=== PATIENT | male | born 1945 | race Caucasian/White ===

== ENCOUNTER 2017-03-02 19:24 | Inpatient (IN) ==
[2017-03-02] MEDS ORDERED: Sodium Chloride 0.9% 1,000 ML PRIMARY IV ONE ×2 (19:40→21:34)
[2017-03-02] MEDS ORDERED: ONDANSETRON 4 MG/2 ML VIAL ONE (19:50)
[2017-03-02] MEDS ORDERED: ONDANSETRON 4 MG/2 ML VIAL IVP ONE (20:38)
[2017-03-02] MEDS ORDERED: MORPHINE SULFATE 4 MG/1 ML IVP ONE (21:33)
[2017-03-02] MEDS ORDERED: NORMAL SALINE 10 ML SYRINGE FLUSH IVP PRN ×2 (21:34→23:23)
--- NOTE | 2017-03-02 21:37 | EKG ---
[address] [address] Measurements Intervals [place] Rate: 84 P: 18 LA: 181 QRS: -16 QRSD: 98 T: 58 QT: 402 QTc: 443 Interpretive Statements SINUS RHYTHM VOLTAGE CRITERIA FOR LVH [MEETS CRITERIA IN ONE OF: R(aVL), S(V1), R(V5), R(V5/V6)+S(V1)] NONSPECIFIC ST & T-WAVE ABNORMALITY (consider low K+ or Ca++) INTERPRETATION BASED ON A DEFAULT AGE OF 40 YEARS No previous ECG available for comparison Electronically Signed On 03-03-17 08:33:45 MDT by Prince Michaels MD [email or web address]
[2017-03-02 21:47] LABS: BLOOD UREA NITROGEN 20 mg/dL (7-22); BUN/CREATININE RATIO 28.57 (6-20)
[2017-03-02 21:48] LABS: LIPASE 58 IU/L (23-300); SERUM ALBUMIN 4.9 g/dL (3.5-4.8)
[2017-03-02 21:49] LABS: BASOPHILS # (AUTO) 0.06 10*3/UL; BASOPHILS % (AUTO) 0.14 % (0-1); EOSINOPHILS # (AUTO) 0.06 10*3/UL; EOSINOPHILS % (AUTO) 0.4 % (0-8); Hematocrit [HCT] 44.3 % (42.0-52.0); LYMPHOCYTES # (AUTO) 1.08 10*3/uL; MEAN CORPUSCULAR HEMOGLOBIN 33.7 PG (27-31); MEAN CORPUSCULAR HGB CONC 36.1 g/dL (33-37); MEAN CORPUSCULAR VOLUME 93.3 FL (80-90); MEAN PLATELET VOLUME 9.8 FL (7.4-12.2); MONOCYTES # (AUTO) 0.77 10*3/UL (0.3-0.8); MONOCYTES % (AUTO) 5.3 % (5-15); NEUTROPHILS # (AUTO) 12.55 10*3/UL; NEUTROPHILS % (AUTO) 86.3 % (50-80); PLATELET MORPHOLOGY COMMENT NORMAL MORPHOLOGY (NORM); RBC MORPHOLOGY COMMENT NORMAL MORPHOLOGY (NORM); RED BLOOD COUNT 4.75 10^6/uL (4.70-6.10); WBC MORPHOLOGY COMMENT NORMAL MORPHOLOGY (NORM)
[2017-03-02 21:50] LABS: COLOR,URINE YELLOW; URINE SAMPLE TYPE VOIDED SPECIMEN
[2017-03-02 21:51] LABS: BILIRUBIN,URINE NEGATIVE (NEG); CLARITY,URINE CLEAR (CLEAR); GLUCOSE, URINE (UA) NEGATIVE (NEG); NITRATE,URINE NEGATIVE (NEG); OCCULT BLOOD,URINE TRACE (NEG); PH,URINE 7.5 (5.0-8.5); PROTEIN,URINE 100 mg/dl (NEG); RBC,URINE 0-5 /hpf; UROBILINOGEN,URINE 0.2 EU/dL (0.2)
--- NOTE | 2017-03-02 22:21 | PDOC ---
Abdomen/Flank HPI - General Chief Complaint: Abdomen Pain Stated Complaint: abdominal pain Date Seen by Provider: 03/02/17 Time Seen by Provider: 19:30 Source: POSITIVE: Patient, Spouse Exam Limitations: POSITIVE: No limitations Nurse's Notes Reviewed & Considered: Yes - History of Present Illness Initial Comments: The patient is a 71-year-old male. He states that around noon today he developed poorly localized abdominal pain and nausea with vomiting. He states he's been belching a great deal. He states that he feels "like my stomach is an and not". No diarrhea, melena, hematochezia, hematemesis, dysuria or hematuria. He's had a cholecystectomy, laparoscopic. He's also had a coronary artery bypass graft 10 years ago and states he's had a "heart attack". He has a history of hypertension and benign prostatic hypertrophy. No known fevers. Body Location Affected: REPORTS: Abdomen Timing: REPORTS: Gradual, Getting Worse Duration: <24 hours (7-8 hours) Severity: Moderate Quality: REPORTS: "Pain" Abdominal Pain Onset Location: REPORTS: Generalized abdomen Abdominal Pain Radiation: REPORTS: No radiation Context: DENIES: None, Activity, Bending, Coughing, Fall, Lifting, Near Fall, Rest, Sitting, Sleep, Standing, Turning, Emotional stress, Camping, Bad Food, Out of Country Travel, Other, Recent Surgery, Recent Trauma Modifying Factors: improves with: Vomiting. worse with: Nothing, Analgesics, Antacids, Breathing, Coughing, Defecating, Eating, Exercise, Lying down, Urinating, Palpation, Movement, Rest, Upright Position, Walking, Remaining Still , Other Associated Symptoms: REPORTS: Nausea, Vomiting. DENIES: Denies symptoms, Back pain, Bloody Emesis, Chest pain, Coffee Grounds Emesis, Chills, Diaphoresis, Fever, Fatigue, Headache, Heartburn, Loss of Appetite, Rash, Shortness of breath , Swelling/mass in abdomen, Syncope, Testicular Pain, Weakness, Grossly Bloody Diarrhea, Constipation, Diarrhea, Dysuria, Incontinent Stool, Incontinent Urine , Mucous Diarrhea, Difficulty Walking, Dizziness, Light Headedness, Numbness, Other Similar Symptoms Previously: No Recent Care Received: REPORTS: Denies Any Prior Injuries Related to Current Complaint?: No - Patient Home Medications Home Medications: Home Medications Amlodipine Besylate [Norvasc] 1 tab PO DAILY 03/02/17 Atorvastatin Calcium 1 tab PO DAILY 03/02/17 Carvedilol 25 mg PO DAILY 03/02/17 Cyanocobalamin (Vitamin B-12) [B-12] 1 tab PO DAILY 03/02/17 Dutasteride [Avodart] 1 tab PO .QOD 03/02/17 [place]-3/Dha/Epa/Fish Oil [[place]-3 Fish Oil 1,200 mg Sfgl] 1 tab-cap PO ONCE Valsartan/Hydrochlorothiazide [Diovan Hct 320-25 mg Tablet] 1 tab PO EVERY AM - Patient Allergies Allergies/Adverse Reactions: Allergies Allergy/AdvReac Type Severity Reaction Status Date / Time No Known Allergies Allergy Unverified 03/02/17 20:13 Past Medical History - heen HEENT History: Denies History Cardiovascular History: Hypertension, Previous PA Respiratory History: Denies History Gastrointestinal History: Denies History Genitourinary History: Kidney Stones Endocrine History: Denies History Musculoskeletal History: Denies History Prosthesis or Implant: No Neurological History: CVA Blood Disorders: Denies History Psychiatric History: Denies History History of Sexually Transmitted Diseases: No Male Reproductive History: Denies History Cancer History: Denies History In Past Year Been Physically Harmed or Verbally Threatened: No History of MDRO: No History of Other Communicable Diseases: No Tobacco Use: Never Smoker Alcohol Use: Occasionally Type of alcohol normally used: Beer, Hard Liquor Substance Use Type: None Previous Surgical History: Yes Type / Date of Surgery: TRIPLE BYPASS, GALBLADDER REMOVAL, LEFT KNEE REPLACEMENT , RIGHT ROTATOR CUFF SURGERY Anesthesia Reactions: No Malignant Hyperthermia: No Family History of Malignant Hyperthermia: No Significant Family History: No pertinent family hx Past Medical History Reviewed: Reviewed - No Changes ROS - Limitations ROS Limitations: No Limitations Constitution: REPORTS: Denies Symptoms Cardiovascular: REPORTS: Denies Cardiac Symptoms Respiratory: REPORTS: Denies Resp Symptoms Neurological: REPORTS: Denies Neuro Symptoms Gastrointestinal: REPORTS: Abdominal Pain, Nausea, Vomitting Endocrine: REPORTS: Denies Symptoms Musculoskeletal: REPORTS: Denies MS Symptoms Genitourinary: REPORTS: Denies Symptoms Eyes: REPORTS: Denies Symptoms ENT: REPORTS: Denies Symptoms Skin: REPORTS: Denies Skin Symptoms Lympathic: REPORTS: Denies Lympathic Symptoms Immunologic: POSITIVE: Denies Symptoms Psychiatric: POSITIVE: Denies Psych Symptoms Abdominal/Flank Pain PE - General Appearance General Appearance: POSITIVE: Alert, Cooperative, No Evidence of Trauma, Mild Distress. NEGATIVE: No Acute Distress - HEENT HEENT: POSITIVE: Head Inspection Nml, Eyes Inspection Nml, Ears Inspection Nml, Nose Inspection Nml, Oral/Dental Inspect. Nml, Pharynx Inspect. Nml, PERRL, EOMI - Neck Neck: POSITIVE: Normal Inspection, No Apparent Injury - Respiratory Respiratory: POSITIVE: No Respiratory Distress, Breath Sounds Normal, Chest Non- Tender - Cardiovascular Cardiovascular: POSITIVE: Regular Rate and Rhythm, Heart Sounds Normal, Equal Pulses, Strong Pulses Peripheral Pulses: Radial (R): 2+, Radial (L): 2+ - Chest Chest: POSITIVE: Non Tender - Abdomen Abdomen: Soft: (All Quadrants), No Splenomegaly: (All Quadrants), No Hepatomegaly: (All Quadrants), No Guarding: (All Quadrants), No Rebound: (All Quadrants), No Palpable Pulse: (All Quadrants), No Palpabale Mass: (All Quadrants), No Distention: (All Quadrants), No Rigidity: (All Quadrants), Tenderness Noted: (RUQ), (LUQ), (RLQ), (LLQ), Hypoactive Bowel Sounds: (RUQ), ( LUQ), (RLQ), (LLQ) Additional Abdominal Details: Abdominal examination shows bowel sounds to be present, but probably depressed. Patient expresses discomfort/pain on direct palpation diffusely over the abdomen. No masses, organomegaly or rebound. - Genital / Rectal Male Genital: POSITIVE: Normal Inspection. 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 Lab Results Reviewed: Yes Lab Results:: Laboratory Results 03/02/17 Range/Units 19:30 WBC 14.55 H (4.8-10.8) 10^3/uL RBC 4.75 (4.70-6.10) 10^6/uL Hgb 16.0 (14.0-18.0) g/dL Hct 44.3 (42.0-52.0) % MCV 93.3 H (80-90) FL MCH 33.7 H (27-31) PG MCHC 36.1 (33-37) g/dL RDW Std Deviation 45.2 (39-50) fL RDW Coeff of Tony 13.6 (11.5-14.5) % Plt Count 279 (140-350) 10*3/uL MPV 9.8 (7.4-12.2) FL Immature Gran % (Auto) 0.2 (0-5) % Neut % (Auto) 86.3 H (50-80) % Lymph % (Auto) 7.4 L (10-50) % Pierce % (Auto) 5.3 (5-15) % Eos % (Auto) 0.4 (0-8) % Baso % (Auto) 0.14 (0-1) % Immature Gran # (Auto) 0.03 10*3/UL Neut # (Auto) 12.55 10*3/UL Lymph # (Auto) 1.08 10*3/uL Pierce # (Auto) 0.77 (0.3-0.8) 10*3/UL Eos # (Auto) 0.06 10*3/UL Baso # (Auto) 0.06 10*3/UL WBC Morphology Comment Normal morphology (NORM) Plt Morphology Comment Normal morphology (NORM) RBC Morph Comment Normal morphology (NORM) Sodium 143 (135-145) meq/L Potassium 3.9 (3.8-5.2) meq/L Chloride 103 (98-112) meq/L Carbon Dioxide 24 (23-33) meq/L Anion Gap 16 (5-20) BUN 20 (7-22) mg/dL Creatinine 0.7 (0.70-1.50) mg/dL Estimated GFR > 60 (>60 ml/min/1.73m(2)) BUN/Creatinine Ratio 28.57 H (6-20) Glucose 131 H (78-110) mg/dL Calculated Osmolality 300.0 H (267-292) mOsm/kg Calcium 10.5 (8.7-10.7) mg/dL Total Bilirubin 1.1 (0.3-1.2) mg/dL AST 41 (21-57) IU/L ALT 70 (21-72) IU/L Alkaline Phosphatase 73 (38-126) IU/L Total Protein 8.2 H (6.1-8.0) g/dL Albumin 4.9 H (3.5-4.8) g/dL Globulin 3.3 (2.50-4.10) g/dL Albumin/Globulin Ratio 1.40 (1.3-2.0) mg/g Amylase 74 (30-110) U/L Lipase 58 (23-300) IU/L Ur Collection Type Voided specimen Urine Color Yellow Urine Clarity Clear (CLEAR) Urine pH 7.5 (5.0-8.5) Ur Specific [place] 1.015 (1.005-1.030) Urine Protein 100 (NEG) mg/dl Urine Glucose (UA) Negative (NEG) mg/dL Urine Ketones 15 (NEG) Urine Occult Blood Trace H (NEG) Urine Nitrate Negative (NEG) Urine Bilirubin Negative (NEG) Urine Urobilinogen 0.2 (0.2) EU/dL Ur Leukocyte Esterase Negative (NEG) Urine RBC 0-5 (NONE) /hpf Urine WBC None (NONE) Ur Squamous Epith Cells None (NONE) Ur Renal Epithelial Cell None (NONE) Urine Crystals None Urine Bacteria None (NONE) Urine Casts None (NONE) Urine Mucus Moderate (NONE) Urine Trichomonas None (NONE) Urine Yeast None (NONE) Ur Culture Indicated? Culture not set EKG Interpreted/Reviewed By Me:: Yes (nonspecific ST-T changes) EKG Interpretation:: POSITIVE: Normal Sinus Rhythm, Normal Rate, Normal Intervals, Normal Robinson, Normal QRS, Abnormal EKG. NEGATIVE: Normal ST/T ( Nonspecific ST-T changes) - Patient's Progress Pain Medication Addressed: POSITIVE: Yes (Morphine sulfate, 4 mg IV given) School/Work Release Addressed: POSITIVE: Not Applicable Re-examine Time: 21:30 Re-Examine Comment: Radiologic and laboratory study results discussed with patient and his . Status: POSITIVE: Unchanged, Re-Examined - Consult Consult (If Yes, Name of Consulting MD & Time Called): Yes (Dr. Thomas, surgeon, [id number]) Consulting MD will see pt:: [facility]ITIVE: [facility] Admit Counseled: POSITIVE: Patient, Family, RE: Lab Results, RE: Radiology Results, RE : DX, RE: Need for F/U Patient Care Time - Estimated PCT Patient Care Time (In Minutes): 50 Vital Signs - Recent Vital Signs Vital Signs: Vital Signs (Last 8 hours) Temp Pulse Resp BP Pulse Ox 03/02/17 20:14 98.2 F 89 18 188/102 94 03/02/17 19:30 98.2 F 89 18 188/102 94 - VS Reviewed Vital Signs Reviewed: Yes Discharge Clinical Impression: Abdominal pain, Bowel obstruction Discharge Disposition: Admit to Inpatient Condition: Fair Date Decision to Admit to Inpatient: 03/02/17 Time Decision to Admit to Inpatient: 21:30
--- NOTE | 2017-03-02 22:58 | CONSULT ---
Consult Note - Consult Consult Date: 03/02/17 Reason for Consult: PreOp Consulation : General Surgery Requesting Physician: Dr. Timmons. Dr. Machado. Primary Care Provider: NONE NONE Patient is from [place] and traveling through the area. - History of Present Illness History of Present Illness: Patient is a very pleasant 71-year-old male who is traveling through [place]. He was out visiting some friends in [place]. He lives in [facility] and was returning towards home. He reports on Wednesday he had an [employer] sandwich and had a tremendous amount of gas including flatus. Yesterday or Wednesday he didn't feel good but had no specific complaints. This morning he awoke and ate. He developed abdominal pain and cramps with nausea. He did not pass much gas. He only had a small bowel movement. They continued to travel but the was now driving. He had her pin puller to the side of the road. He vomited at that point. He reports he was about 15 minutes out of [place]. He had cold chills. He had diffuse abdominal pain which he described as cramping in nature. He has never had anything like this before. They came into the emergency room and were evaluated by Dr. Timmons. Patient's only abdominal surgery was a cholecystectomy. He was afebrile and his vital signs were stable. He had diffuse abdominal tenderness without rebound. He did not have an acute abdomen but he had decreased bowel tones. His white count was elevated at 14,500. CT was done and is read as a suspected transverse mesocolon internal hernia versus an ileus. I was asked to see the patient in consultation. He is being admitted to the hospitalist service, with myself acting as a gis consultant. I have spoken with Dr. Machado about his care. Review of Systems - Gastrointestinal Gastrointestinal / Abdominal: REPORTS: Nausea, Vomiting, Abdominal Pain, Poor Appetite, Bloating, See HPI Past Medical History Medical History: 1. Coronary artery disease. 2. History of a CVA. 3. Recurrent kidney stones. 4. Hyperlipidemia. 5. Hypertension. 6. Erectile dysfunction. Surgical History: 1. Coronary angioplasty. 2. Coronary artery bypass grafting. 3. Cholecystectomy. 4. Left knee replacement. 5. Right shoulder surgery. 6. Extraction of multiple kidney stones and multiple lithotripsies. Tobacco Use: Never Smoker Do you dip or chew tobacco: No Substance Use Type: None Alcohol Use: Occasionally Medication / Allergies Home Medications: Home Medications Medication Instructions Recorded Confirmed Type Amlodipine Besylate [Norvasc] 1 tab PO DAILY 03/02/17 03/02/17 History Atorvastatin Calcium 1 tab PO DAILY 03/02/17 03/02/17 History Carvedilol 25 mg PO DAILY 03/02/17 03/02/17 History Cyanocobalamin (Vitamin B-12) 1 tab PO DAILY 03/02/17 03/02/17 History [B-12] Dutasteride [Avodart] 1 tab PO .QOD 03/02/17 03/02/17 History [place]-3/Dha/Epa/Fish Oil [[place]-3 1 tab-cap PO ONCE 03/02/17 03/02/17 History Fish Oil 1,200 mg Sfgl] Valsartan/Hydrochlorothiazide 1 tab PO EVERY AM 03/02/17 03/02/17 History [Diovan Hct 320-25 mg Tablet] Allergies/Adverse Reactions: Allergies Allergy/AdvReac Type Severity Reaction Status Date / Time No Known Allergies Allergy Unverified 03/02/17 20:13 Exam - General General Appearance: POSITIVE: No Acute Distress, Cooperative - Respiratory Respiratory Exam: POSITIVE: Clear to Auscultation - Bilaterally, Breathing Non Labored - Cardiovascular Cardiovascular Exam: POSITIVE: RRR, No Murmur - GI/Abdominal GI/Abdominal Exam: POSITIVE: Soft, Diminished Bowel Sounds Additional GI/Abdominal Exam Details: Abdomen is protuberant and distended. There are decreased bowel tones. Patient has been given some narcotics but has no focal tenderness. There is no guarding or rebound. No signs of peritonitis. No costovertebral angle tenderness. No gross hernias. - Rectal Rectal Exam: POSITIVE: Deferred - Neurological Neurological Exam: POSITIVE: Alert, Oriented x 3 - Psychiatric Psychiatric Exam: POSITIVE: Normal Affect, Normal Mood - Integumentary Integumentary Exam: POSITIVE: Normal Color, Warm, Dry, Intact Results - Labs CBC and BMP: 03/02/17 19:30 03/02/17 19:30 - Imaging Status: Image Reviewed by Me (To my eye the patient has dilated proximal small bowel with decompressed distal small bowel. The colon is decompressed as well. I believe there is a transition point in the left mid abdomen. I don't see any mesenteric twisting. There is no free air. There is no free fluid. There are no gross inflammatory changes. There are multiple kidney stones.), Report Reviewed by Me Assessment and Plan - Patient Problems (1) Small bowel obstruction Current Visit: Yes Status: Acute Priority: High Diagnosis Date: 03/02/17 Comment: Etiology is unclear. There is proximally dilated and distally decompressed small bowel. The colon is decompressed as well. I discussed his care with Dr. Machado. He will be given IV fluids. He'll be given appropriate pain medicines and antinausea medicines overnight. He should have an NG tube placed. He should have morning labs. I have recommended a Gastrografin challenge tomorrow morning. I will plan on checking on the patient again in the morning. The possibility of surgical intervention has been discussed with the patient and his . At the present time he does not have an acute surgical abdomen. At this time it is reasonable to give him an overnight trial of conservative treatment. If he fails to improved he'll need to go to the operating room tomorrow.
[2017-03-02] MEDS ORDERED: Sodium Chloride 0.9% 1,000 ML ONE (23:08)
[2017-03-02] MEDS ORDERED: ONDANSETRON 4 MG/2 ML VIAL IVP PRN (23:23)
[2017-03-02] MEDS ORDERED: LABETALOL 20 MG/4 ML (5 MG/1 ML) SYRINGE IVP PRN (23:23)
[2017-03-02] MEDS ORDERED: ACETAMINOPHEN 325 MG TABLET PO PRN (23:23)
[2017-03-02] MEDS ORDERED: HYDROmorphone 2 MG/1 ML IVP PRN (23:23)
[2017-03-02] MEDS ORDERED: LIDOCAINE W/ SODIUM BICARB 0.5 ML SYR SUBD PRN (23:23)
[2017-03-02] MEDS ORDERED: LIDOCAINE HCL 5 ML JEL TOPICAL ONE (23:24)
--- NOTE | 2017-03-02 23:34 | PDOC ---
History and Physical - History of Present Illness Date and Time of Service: 03/02/2017, 2333 Chief Complaint: Abdominal pain with nausea and vomiting History of Present Illness: This very pleasant 71-year-old male with hypertension, coronary artery disease, history of kidney stones, and benign prostatic hypertrophy who presents here tonight accompanied by his with complaints of abdominal pain and nausea and vomiting. He states his symptoms started yesterday. Him and his were driving from [place] to [place] on vacation as they were heading back home. This stopped and should [place], [place], had some breakfast burritos and coffee, and the patient became ill. They had to puller machine and he threw up. He had 2 more episodes of emesis through the day. No fevers, chills, or other symptoms. This morning, his symptoms persisted, and he tried some [employer] but had some initial gas and then had no bowel movements or gas after early this morning. Patient's not had this happen before. With the distention and pain in his abdomen he came in for evaluation and was found to have what appears to be an ileus versus a transverse mesocolon. He states that he has a family history of colon cancer and that his mother passed on from this and he has had screening colonoscopies about every 3 years with one done within the last 12 months with a couple of polyps removed. He states that the colonoscopy was otherwise negative. He has had a prior cholecystectomy. He denied any blood in the stools, diarrhea or constipation problems, and he denied any hematemesis. I spoke with Dr. Thomas, our surgeon environmental property assessor, and he evaluated the patient and we both agree that the patient should be admitted with an NG tube for medical therapy for possible decompression and hopeful clearance of this bowel junction , and if this does not work, he may need surgery tomorrow. A Gastrografin swallow study will be done tomorrow as well. Past Medical History Medical History: 1. Coronary artery disease, status post CABG 3 vessels 10 years ago. 2. History of a CVA. This was in the setting of angioplasty with right hemiparesis that resolved. 3. Recurrent kidney stones. Status post lithotripsy and cystoscopy. Had to have a nephrostomy tube with one of them. 4. Hyperlipidemia. 5. Hypertension. 6. Erectile dysfunction. 7. Benign prostatic hypertrophy Surgical History: 1. Coronary angioplasty. 2. Coronary artery bypass grafting 3 vessels. 3. Cholecystectomy. 4. Left knee replacement. 5. Right shoulder surgery. 6. Extraction of multiple kidney stones and multiple lithotripsies. 7. Colonoscopy multiple times, most recently within the last year with a couple of polyps removed. 8. History of vasectomy Pertinent Family History: Significant for colon cancer in jaw cancer. His mother had colon cancer. Past Social History: . This is his third marriage. Been for 21 years. 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 Has 2 sons described as healthy. Does not smoke. Rarely drinks. Tobacco Use: Never Smoker Do you dip or chew tobacco: No Substance Use Type: None Alcohol Use: Occasionally Medication / Allergies Home Medications: Home Medications Medication Instructions Recorded Confirmed Type Amlodipine Besylate [Norvasc] 1 tab PO DAILY 03/02/17 03/02/17 History Atorvastatin Calcium 1 tab PO DAILY 03/02/17 03/02/17 History Carvedilol 25 mg PO DAILY 03/02/17 03/02/17 History Cyanocobalamin (Vitamin B-12) 1 tab PO DAILY 03/02/17 03/02/17 History [B-12] Dutasteride [Avodart] 1 tab PO .QOD 03/02/17 03/02/17 History [place]-3/Dha/Epa/Fish Oil [[place]-3 1 tab-cap PO ONCE 03/02/17 03/02/17 History Fish Oil 1,200 mg Sfgl] Valsartan/Hydrochlorothiazide 1 tab PO EVERY AM 03/02/17 03/02/17 History [Diovan Hct 320-25 mg Tablet] Allergies/Adverse Reactions: Allergies Allergy/AdvReac Type Severity Reaction Status Date / Time No Known Allergies Allergy Unverified 03/02/17 20:13 Review of Systems - Review of Systems All Systems: Reviewed & No Additional Complaints Except as Stated (I did a 12 point review systems and it was negative other than that discussed in history present illness and that noted below.) - Constitutional Constitutional: REPORTS: Other (Had some sweating with the nausea and vomiting) - Respiratory Respiratory: REPORTS: Negative System Review - Cardiovascular Cardiovascular: REPORTS: Negative System Review - Gastrointestinal Gastrointestinal / Abdominal: REPORTS: Other (Burping frequently), See HPI. DENIES: Bloody Stool, Melena - Genitourinary Genitourinary: REPORTS: Hesitant Stream, Decreased Stream, Other (Patient states that he felt like his testicular sacs have been a little larger.) - Musculoskeletal Musculoskeletal: REPORTS: Joint Pain - Knees (Particularly the left knee which she had replaced.) - Neurological Neurologic: REPORTS: Other (History of stroke with occasional problems holding a fork or a piece of paper but resolved right hemiparesis) Exam - Vitals Vital Signs: Vital Signs Height 5 ft 4 in Weight 230 lb 6 oz Vital Signs - Last Taken Temperature 98.4 F 03/02/17 23:26 Pulse Rate 82 03/02/17 23:26 Respiratory Rate 16 03/02/17 23:26 Blood Pressure 169/79 03/02/17 23:26 Pulse Ox 96 03/02/17 23:26 - General General Appearance: POSITIVE: No Acute Distress, Cooperative, Obese - Head Head Exam: POSITIVE: Normal Inspection, Normocephalic, Atraumatic - Eye Eye Exam: POSITIVE: No Scleral Icterus - ENT ENT Exam: POSITIVE: Mucous Membranes Moist - Neck Neck Exam: POSITIVE: Normal Inspection, No Tenderness, No Thyromegaly - Respiratory Respiratory Exam: POSITIVE: Clear to Auscultation - Bilaterally, Breathing Non Labored, Normal to Percussion and Palpation - Cardiovascular Cardiovascular Exam: POSITIVE: RRR, No Murmur, No Clicks, No Gallops, No Rubs, No JVD - GI/Abdominal GI/Abdominal Exam: POSITIVE: Non Tender, Hypoactive Bowel Sounds Additional GI/Abdominal Exam Details: Tympanic to percussion and nontender to palpation - Rectal Rectal Exam: POSITIVE: Deferred - External Exam: POSITIVE: Deferred Additional Exam Details: Normal genitourinary examination. Testicles normal size. May have hydrocele? - Extremities Extremities Exam: POSITIVE: No Clubbing Present, No Edema Present, No Cyanosis Present Additional Extremities Exam Details: Chronic scar on right knee since July 2016, has had biopsy and drainage done on this knee scar and it appears to be a chronic ulceration. It is not infected and is not erythematous at this time. Followed by his primary care doctor in [place]. - Back Back Exam: POSITIVE: No CVA Tenderness - Neurological Neurological Exam: POSITIVE: Alert, Oriented x 3, Normal Gait, No Facial Droop, Speech Intact / Clear, Moves All Extremities Equally - Psychiatric Psychiatric Exam: POSITIVE: Normal Affect, Normal Mood - Integumentary Integumentary Exam: POSITIVE: Normal Color, Warm, Dry, Intact - Central Line Examination Central Line Present on Admission: No Results - Labs CBC and BMP: 03/02/17 19:30 03/02/17 19:30 Labs - Last 24 Hours: Laboratory Results 03/02/17 Range/Units 19:30 WBC 14.55 H (4.8-10.8) 10^3/uL RBC 4.75 (4.70-6.10) 10^6/uL Hgb 16.0 (14.0-18.0) g/dL Hct 44.3 (42.0-52.0) % MCV 93.3 H (80-90) FL MCH 33.7 H (27-31) PG MCHC 36.1 (33-37) g/dL RDW Std Deviation 45.2 (39-50) fL RDW Coeff of Tony 13.6 (11.5-14.5) % Plt Count 279 (140-350) 10*3/uL MPV 9.8 (7.4-12.2) FL Immature Gran % (Auto) 0.2 (0-5) % Neut % (Auto) 86.3 H (50-80) % Lymph % (Auto) 7.4 L (10-50) % [place] % (Auto) 5.3 (5-15) % Eos % (Auto) 0.4 (0-8) % Baso % (Auto) 0.14 (0-1) % Immature Gran # (Auto) 0.03 10*3/UL Neut # (Auto) 12.55 10*3/UL Lymph # (Auto) 1.08 10*3/uL [place] # (Auto) 0.77 (0.3-0.8) 10*3/UL Eos # (Auto) 0.06 10*3/UL Baso # (Auto) 0.06 10*3/UL WBC Morphology Comment Normal morphology (NORM) Plt Morphology Comment Normal morphology (NORM) RBC Morph Comment Normal morphology (NORM) Sodium 143 (135-145) meq/L Potassium 3.9 (3.8-5.2) meq/L Chloride 103 (98-112) meq/L Carbon Dioxide 24 (23-33) meq/L Anion Gap 16 (5-20) BUN 20 (7-22) mg/dL Creatinine 0.7 (0.70-1.50) mg/dL Estimated GFR > 60 (>60 ml/min/1.73m(2)) BUN/Creatinine Ratio 28.57 H (6-20) Glucose 131 H (78-110) mg/dL Calculated Osmolality 300.0 H (267-292) mOsm/kg Calcium 10.5 (8.7-10.7) mg/dL Total Bilirubin 1.1 (0.3-1.2) mg/dL AST 41 (21-57) IU/L ALT 70 (21-72) IU/L Alkaline Phosphatase 73 (38-126) IU/L Total Protein 8.2 H (6.1-8.0) g/dL Albumin 4.9 H (3.5-4.8) g/dL Globulin 3.3 (2.50-4.10) g/dL Albumin/Globulin Ratio 1.40 (1.3-2.0) mg/g Amylase 74 (30-110) U/L Lipase 58 (23-300) IU/L Ur Collection Type Voided specimen Urine Color Yellow Urine Clarity Clear (CLEAR) Urine pH 7.5 (5.0-8.5) Ur Specific [place] 1.015 (1.005-1.030) Urine Protein 100 (NEG) mg/dl Urine Glucose (UA) Negative (NEG) mg/dL Urine Ketones 15 (NEG) Urine Occult Blood Trace H (NEG) Urine Nitrate Negative (NEG) Urine Bilirubin Negative (NEG) Urine Urobilinogen 0.2 (0.2) EU/dL Ur Leukocyte Esterase Negative (NEG) Urine RBC 0-5 (NONE) /hpf Urine WBC None (NONE) Ur Squamous Epith Cells None (NONE) Ur Renal Epithelial Cell None (NONE) Urine Crystals None Urine Bacteria None (NONE) Urine Casts None (NONE) Urine Mucus Moderate (NONE) Urine Trichomonas None (NONE) Urine Yeast None (NONE) Ur Culture Indicated? Culture not set - EKG Data -: EKG Interpreted by Me Rate: Normal EKG Shows Normal: Sinus Rhythm - EKG Data EKG Interpretation: Nonspecific ST-T Wave Changes (In V4 and V6), LVH - Imaging Status: Image Reviewed by Me (I looked at the CT scan, and it appears that there may be a transitional point with dilated loops of small bowel consistent with obstruction.) Assessment and Plan - Patient Problems (1) Small bowel obstruction Current Visit: Yes Status: Acute Priority: High Diagnosis Date: 03/02/17 (2) Coronary artery disease Current Visit: Yes Status: Acute Qualifiers: Coronary Disease-Associated Artery/Lesion type: [place] artery Associated angina: without angina (3) Hypertension Current Visit: Yes Status: Acute Qualifiers: Hypertension type: essential hypertension Qualified Description: Essential hypertension Qualifier Code(s): (I10) Essential (primary) hypertension (4) Hypercholesterolemia Current Visit: Yes Status: Acute (5) BPH (benign prostatic hyperplasia) Current Visit: Yes Status: Acute Qualifiers: Lower urinary tract symptom presence: symptoms present Lower urinary tract symptom detail: unspecified Qualified Description: Benign prostatic hyperplasia with lower urinary tract symptoms, symptom details unspecified Qualifier Code(s): (N40.1) Benign prostatic hyperplasia with lower urinary tract symptoms, (R35.0) Frequency of micturition (6) History of stroke Current Visit: Yes Status: Acute Comment: In setting of angioplasty in the past, right hemiparesis was noted and it's resolved. This is remote - Assessment / Plan Additional Assessment/Plan Details: Admit the patient. Consult surgery, spoken with Dr. Thomas and we examined the patient together. The plan is for NG tube to low intermittent wall suction, IV fluids, electrolyte management, pain management, antiemetics, and do Gastrografin study tomorrow. If there is still evidence of intestinal obstruction tomorrow, then the patient may go for expiratory laparotomy. It is reassuring that the colonoscopy was negative, but a small bowel process could certainly be going on. Adhesions could be a possibility but seemingly unlikely given that the only abdominal surgery the patient is had has been a cholecystectomy. At this point I'll hold several medications, but would like to continue beta khris given his chronicity of being on that. He should have that even if he does go to the operating room. When necessary labetalol for blood pressure management. Hold off on other by mouth medications at this time. Full code. I discussed the plan above with surgery, patient, the patient's , and we are all in agreement with the plan.
[2017-03-03] MEDS: Sodium Chloride 0.9% 1,000 ML PRIMARY IV SCH ×2 (01:20→07:42)
[2017-03-03 04:52] LABS: BASOPHILS # (AUTO) 0.06 10*3/UL; BASOPHILS % (AUTO) 0.4 % (0-1); EOSINOPHILS # (AUTO) 0.02 10*3/UL; EOSINOPHILS % (AUTO) 0.1 % (0-8); Hematocrit [HCT] 40.9 % (42.0-52.0); Hemoglobin [HGB] 14.3 g/dL (14.0-18.0); LYMPHOCYTES # (AUTO) 1.37 10*3/uL; MEAN CORPUSCULAR HEMOGLOBIN 33.2 PG (27-31); MEAN CORPUSCULAR VOLUME 94.9 FL (80-90); MONOCYTES # (AUTO) 1.19 10*3/UL (0.3-0.8); MONOCYTES % (AUTO) 8.6 % (5-15); NEUTROPHILS # (AUTO) 11.22 10*3/UL; NEUTROPHILS % (AUTO) 80.7 % (50-80); RED BLOOD COUNT 4.31 10^6/uL (4.70-6.10)
[2017-03-03 05:00] LABS: PLATELET MORPHOLOGY COMMENT NORMAL MORPHOLOGY (NORM); RBC MORPHOLOGY COMMENT NORMAL MORPHOLOGY (NORM); WBC MORPHOLOGY COMMENT NORMAL MORPHOLOGY (NORM)
[2017-03-03 05:02] LABS: BLOOD UREA NITROGEN 18 mg/dL (7-22); BUN/CREATININE RATIO 25.71 (6-20); SERUM ALBUMIN 4.2 g/dL (3.5-4.8)
--- NOTE | 2017-03-03 10:03 | DI ---
AP CHEST X-RAY, 03/03/2017 12:14 AM : Clinical History: Partial small bowel obstruction. Verification of nasogastric tube placement. Previous Exam: None at this facility. On this view, the patient took a very shallow inspiration. There is no acute soft tissue or bony abno rmality. The patient is status post CABG. The heart size is mildly enlarged without CHF. No acute inf iltrate or effusion is present. Mediastinal structures are normal. There are no pulmonary nodules. Th e nasogastric tube tip is in the fundus of the stomach. Readin. There is no acute infiltrate or effusion. 2. Mild cardiomegaly without CHF. 3. The tip of the nasogastric tube is in the fundus of the stomach.
--- NOTE | 2017-03-03 10:03 | DI ---
IVETH, 03/03/2017 12:42 AM: Clinical History: Small bowel obstruction. Status post placement of a nasogastric tube. Previous Exam: None at this facility. There are no soft tissue or bony abnormalities. There are dilated loops of small bowel in the left sharma lf of the abdomen. There are nondilated loops of small bowel in the pelvis extending to the cecum. Th is would imply the partial small bowel obstruction is at least in the mid small bowel to the proximal portion of the ileum. There is no free air or fluid. There is a 25 mm calcification in the right fla nk region consistent with a staghorn calculus. There may be additional calculi in the upper and lower poles of the right kidney. There are some radiodensities visualized through the dilated loops of sma ll bowel that may be calculi in the left kidney. Readin. Partial small bowel obstruction probably between the mid small bowel to the proximal ileum. The n asogastric tube is in the fundus of the stomach. 2. There is a staghorn calculus of the right kidney with calculi in the upper and lower poles of the right kidney. Small calculi may be present in the left kidney as well.
[2017-03-03] MEDS: CARVEDILOL 12.5 MG TABLET PO SCH ×2 (10:11→14:10)
--- NOTE | 2017-03-03 13:08 | PDOC(PROG) ---
Date and Time of Service: 03/03/2017, 1205 Interval History: Complains of worsened abdominal pain, has nausea. Stated he had very small bowel movement today and this passed some gas. No chest pain and no trouble breathing. Objective : Data - Labs CBC and BMP: 03/03/17 04:23 03/03/17 04:23 Labs - Last 24 Hours: Laboratory Results 03/03/17 Range/Units 04:23 WBC 13.90 H (4.8-10.8) 10^3/uL RBC 4.31 L (4.70-6.10) 10^6/uL Hgb 14.3 (14.0-18.0) g/dL Hct 40.9 L (42.0-52.0) % MCV 94.9 H (80-90) FL MCH 33.2 H (27-31) PG MCHC 35.0 (33-37) g/dL RDW Std Deviation 45.8 (39-50) fL RDW Coeff of Tony 13.7 (11.5-14.5) % Plt Count 246 (140-350) 10*3/uL MPV 10.0 (7.4-12.2) FL Immature Gran % (Auto) 0.3 (0-5) % Neut % (Auto) 80.7 H (50-80) % Lymph % (Auto) 9.9 L (10-50) % [place] % (Auto) 8.6 (5-15) % Eos % (Auto) 0.1 (0-8) % Baso % (Auto) 0.4 (0-1) % Immature Gran # (Auto) 0.04 10*3/UL Neut # (Auto) 11.22 10*3/UL Lymph # (Auto) 1.37 10*3/uL [place] # (Auto) 1.19 H (0.3-0.8) 10*3/UL Eos # (Auto) 0.02 10*3/UL Baso # (Auto) 0.06 10*3/UL WBC Morphology Comment Normal morphology (NORM) Plt Morphology Comment Normal morphology (NORM) RBC Morph Comment Normal morphology (NORM) PT 10.7 (9.7-11.4) secs INR 1.01 (0.00-5.90) N/A Sodium 142 (135-145) meq/L Potassium 4.1 (3.8-5.2) meq/L Chloride 105 (98-112) meq/L Carbon Dioxide 24 (23-33) meq/L Anion Gap 13 (5-20) BUN 18 (7-22) mg/dL Creatinine 0.7 (0.70-1.50) mg/dL Estimated GFR > 60 (>60 ml/min/1.73m(2)) BUN/Creatinine Ratio 25.71 H (6-20) Glucose 126 H (78-110) mg/dL Calculated Osmolality 297.0 H (267-292) mOsm/kg Lactic Acid 1.6 (0.70-2.10) MMOL/L Calcium 9.2 (8.7-10.7) mg/dL Total Bilirubin 0.9 (0.3-1.2) mg/dL AST 30 (21-57) IU/L ALT 63 (21-72) IU/L Alkaline Phosphatase 57 (38-126) IU/L Total Protein 6.9 (6.1-8.0) g/dL Albumin 4.2 (3.5-4.8) g/dL Globulin 2.8 (2.50-4.10) g/dL Albumin/Globulin Ratio 1.50 (1.3-2.0) mg/g Objective : Exam - General General Appearance: No Acute Distress, Cooperative - Eye Eye Exam: No Scleral Icterus - ENT ENT Exam: Mucous Membranes Moist - Respiratory Respiratory Exam: Clear to Auscultation - Bilaterally, Breathing Non Labored - Cardiovascular Cardiovascular Exam: RRR, No Murmur, No Clicks, No Gallops, No Rubs, No JVD - GI/Abdominal GI/Abdominal Exam: Hypoactive Bowel Sounds Additional GI/Abdominal Exam Details: more tender today - Extremities Extremities Exam: No Clubbing Present, No Edema Present, No Cyanosis Present - Neurological Neurological Exam: Alert, Oriented x 3, No Facial Droop, Speech Intact / Clear, Moves All Extremities Equally Assessment and Plan - Patient Problems (1) Small bowel obstruction Current Visit: Yes Status: Acute Priority: High Diagnosis Date: 03/02/17 (2) Coronary artery disease Current Visit: Yes Status: Acute Qualifiers: Coronary Disease-Associated Artery/Lesion type: [place] artery Associated angina: without angina (3) Hypertension Current Visit: Yes Status: Acute Qualifiers: Hypertension type: essential hypertension Qualified Description: Essential hypertension Qualifier Code(s): (I10) Essential (primary) hypertension (4) Hypercholesterolemia Current Visit: Yes Status: Acute (5) BPH (benign prostatic hyperplasia) Current Visit: Yes Status: Acute Qualifiers: Lower urinary tract symptom presence: symptoms present Lower urinary tract symptom detail: unspecified Qualified Description: Benign prostatic hyperplasia with lower urinary tract symptoms, symptom details unspecified Qualifier Code(s): (N40.1) Benign prostatic hyperplasia with lower urinary tract symptoms, (R35.0) Frequency of micturition (6) History of stroke Current Visit: Yes Status: Acute - Assessment / Plan Additional Assessment/Plan Details: monitor and correct electrolytes continue IV fluids, may change to D5 1/2 NS with potassium I looked at small bowel series with gastrograffin. contrast flowing, but loops of small bowel do appear enlarged--as per surgery check labs tomorrow Keep NG tube for now. PRN management of BP's until oral route available.
--- NOTE | 2017-03-03 14:09 | PDOC(PROG) ---
Date and Time of Service: 03/03/2017 to p.m. Interval History: Patient was seen earlier today, approximately 10:30, and now. This morning he reported passing a little bit of gas and having a small marble like stool. He later had a little larger stool. He was taken down to x-ray and had several more stools. He has subsequently had a moderate liquid brown stool. His abdominal and feels much better. He still has some pain and a few cramps. Not like before. He denies nausea. His Gastrografin challenge showed dye into the ascending colon by 2 hours. Follow-up x-ray one hour later show partial decompression of the small bowel. There is still some small bowel dilation. Objective : Data - Labs CBC and BMP: 03/03/17 04:23 03/03/17 04:23 Labs - Last 24 Hours: Laboratory Results 03/03/17 Range/Units 04:23 WBC 13.90 H (4.8-10.8) 10^3/uL RBC 4.31 L (4.70-6.10) 10^6/uL Hgb 14.3 (14.0-18.0) g/dL Hct 40.9 L (42.0-52.0) % MCV 94.9 H (80-90) FL MCH 33.2 H (27-31) PG MCHC 35.0 (33-37) g/dL RDW Std Deviation 45.8 (39-50) fL RDW Coeff of Tony 13.7 (11.5-14.5) % Plt Count 246 (140-350) 10*3/uL MPV 10.0 (7.4-12.2) FL Immature Gran % (Auto) 0.3 (0-5) % Neut % (Auto) 80.7 H (50-80) % Lymph % (Auto) 9.9 L (10-50) % [place] % (Auto) 8.6 (5-15) % Eos % (Auto) 0.1 (0-8) % Baso % (Auto) 0.4 (0-1) % Immature Gran # (Auto) 0.04 10*3/UL Neut # (Auto) 11.22 10*3/UL Lymph # (Auto) 1.37 10*3/uL [place] # (Auto) 1.19 H (0.3-0.8) 10*3/UL Eos # (Auto) 0.02 10*3/UL Baso # (Auto) 0.06 10*3/UL WBC Morphology Comment Normal morphology (NORM) Plt Morphology Comment Normal morphology (NORM) RBC Morph Comment Normal morphology (NORM) PT 10.7 (9.7-11.4) secs INR 1.01 (0.00-5.90) N/A Sodium 142 (135-145) meq/L Potassium 4.1 (3.8-5.2) meq/L Chloride 105 (98-112) meq/L Carbon Dioxide 24 (23-33) meq/L Anion Gap 13 (5-20) BUN 18 (7-22) mg/dL Creatinine 0.7 (0.70-1.50) mg/dL Estimated GFR > 60 (>60 ml/min/1.73m(2)) BUN/Creatinine Ratio 25.71 H (6-20) Glucose 126 H (78-110) mg/dL Calculated Osmolality 297.0 H (267-292) mOsm/kg Lactic Acid 1.6 (0.70-2.10) MMOL/L Calcium 9.2 (8.7-10.7) mg/dL Total Bilirubin 0.9 (0.3-1.2) mg/dL AST 30 (21-57) IU/L ALT 63 (21-72) IU/L Alkaline Phosphatase 57 (38-126) IU/L Total Protein 6.9 (6.1-8.0) g/dL Albumin 4.2 (3.5-4.8) g/dL Globulin 2.8 (2.50-4.10) g/dL Albumin/Globulin Ratio 1.50 (1.3-2.0) mg/g - Imaging Imaging Details: Contrast into the colon by 2 hours. Still some dilated small bowel. - Vital Signs Vital Signs and I&O: Vital Signs - Last Taken Temperature 97.6 F 03/03/17 09:00 Pulse Rate 91 03/03/17 09:00 Respiratory Rate 20 03/03/17 09:00 Blood Pressure 163/78 03/03/17 09:00 Pulse Ox 94 03/03/17 09:00 Intake and Output (24hr x 4 totals) 03/01/17 03/02/17 03/03/17 03/04/17 05:59 05:59 05:59 05:59 Intake Total 607 200 Output Total 725 Balance -118 200 Objective : Exam - General General Appearance: Cooperative, Mild Distress - Respiratory Respiratory Exam: Clear to Auscultation - Bilaterally, Breathing Non Labored - Cardiovascular Cardiovascular Exam: RRR, No Murmur - GI/Abdominal GI/Abdominal Exam: Hypoactive Bowel Sounds Additional GI/Abdominal Exam Details: Abdomen remains distended. I think I can feel some dilated loops of small bowel in his mid abdomen. He has a small umbilical hernia which is not incarcerated. He has some diffuse and nonfocal tenderness without guarding, rebound, or peritoneal signs. - Neurological Neurological Exam: Alert, Oriented x 3 - Psychiatric Psychiatric Exam: Normal Affect, Normal Mood Assessment and Plan - Patient Problems (1) Small bowel obstruction Current Visit: Yes Status: Acute Priority: High Diagnosis Date: 03/02/17 Comment: Small bowel obstruction is partial but possibly still high-grade. I discussed his care with Dr. Machado as well as the patient and his . We will discontinue the NG tube. We will start clear liquids slowly. We'll get an x- ray and labs in the morning. If we are unable to get him to tolerate at least a liquid diet will need to proceed with surgical intervention. Hopefully he will continue to pass gas and stool and continued to open up. Just because the contrast was getting into his colon does not mean he still doesn't have a high grade partial small bowel obstruction. Most worrisome is that he doesn't have any reason for an adhesive band or scar tissue to cause his partial small bowel obstruction. Again the plan will be operative intervention if he is unable to tolerate a liquid diet, and if his pain or cramping escalates, or if he has ongoing nausea or vomiting. If he can tolerate a liquid diet and continues to move his bowels he can probably be discharged home in the next 36-48 hours.
--- NOTE | 2017-03-03 16:03 | DI ---
MODIFIED GASTROGRAFIN SMALL BOWEL SERIES, 03/03/2017 6:00 AM: Clinical History: Partial small bowel obstruction. Previous Exam: None at this facility. 100 mL of Gastrografin was injected through the nasogastric tube. Serial films were obtained at 1, 2, and 3 hours. The initial film shows Gastrografin in dilated loops of the proximal small bowel. There is no contras t in the distal small bowel. The 2 hour films show faint opacification of Gastrografin in the ascendi ng colon and the proximal small bowel remains dilated but is less pronounced than on the films obtain ed on 03/03/2017, at 0052 hours. Films at 3 hours show progressive opacification of normal caliber sma ll bowel in the ileum and the terminal ileum. There is contrast visible up to the hepatic flexure. Th e proximal jejunal loops are still mildly dilated but have shown substantial decompression. Reading: At this time, there is no evidence of the partial small bowel obstruction that was noted on the films obtained after midnight on 03/03/2017.
[2017-03-03] MEDS: D5-1/2NS + 20mEq KCL 1,000 ML PRIMARY IV SCH ×2 (16:04→23:31)
[2017-03-04 05:23] LABS: BASOPHILS # (AUTO) 0.02 10*3/UL; BASOPHILS % (AUTO) 0.2 % (0-1); EOSINOPHILS # (AUTO) 0.26 10*3/UL; Hematocrit [HCT] 37.8 % (42.0-52.0); Hemoglobin [HGB] 12.6 g/dL (14.0-18.0); LYMPHOCYTES # (AUTO) 2.06 10*3/uL; MEAN CORPUSCULAR HEMOGLOBIN 32.2 PG (27-31); MEAN CORPUSCULAR HGB CONC 33.3 g/dL (33-37); MEAN CORPUSCULAR VOLUME 96.7 FL (80-90); MEAN PLATELET VOLUME 10.1 FL (7.4-12.2); MONOCYTES # (AUTO) 0.97 10*3/UL (0.3-0.8); MONOCYTES % (AUTO) 11.3 % (5-15); NEUTROPHILS # (AUTO) 5.29 10*3/UL; NEUTROPHILS % (AUTO) 61.5 % (50-80); RED BLOOD COUNT 3.91 10^6/uL (4.70-6.10)
[2017-03-04 05:33] LABS: BLOOD UREA NITROGEN 16 mg/dL (7-22); BUN/CREATININE RATIO 22.85 (6-20); SERUM ALBUMIN 3.6 g/dL (3.5-4.8)
[2017-03-04 05:37] LABS: PLATELET MORPHOLOGY COMMENT NORMAL MORPHOLOGY (NORM); RBC MORPHOLOGY COMMENT NORMAL MORPHOLOGY (NORM); WBC MORPHOLOGY COMMENT NORMAL MORPHOLOGY (NORM)
[2017-03-04] MEDS: D5-1/2NS + 20mEq KCL 1,000 ML PRIMARY IV SCH ×2 (07:12→20:24)
--- NOTE | 2017-03-04 07:49 | DI ---
KUB and UPRIGHT ABDOMEN, 03/04/2017 7:00 AM: Clinical History: Partial small bowel obstruction. Previous Exam: 03/03/2017 and a Gastrografin limited small bowel series also from 03/03/2017. There are no soft tissue or bony abnormalities. The Gastrografin has traveled throughout the colon to the rectum and the colon is filled with air. There are still a few dilated loops of small bowel in t he left upper quadrant with air-fluid levels. This may represent a residual low-grade partial bowel s tructures. There is no free air or fluid. Bilateral renal calculi are visualized. Reading: The Gastrografin and air have coarse throughout the entire colon since the last film from the small b owel series with Gastrografin challenge. There are still some dilated loops of small bowel in the lef t upper quadrant in these have air-fluid levels. This patient now may have a very low-grade partial s mall bowel obstruction.
--- NOTE | 2017-03-04 08:49 | PDOC(PROG) ---
Date and Time of Service: 03/04/2017 8:40 AM Interval History: Patient reports he feels better. He denies any abdominal pain or cramping. He' s had multiple liquid bowel movements since yesterday. He is tolerating small amounts of clear liquids. He denies nausea. He reports his abdomen is less tense. X-ray this morning shows a few generous loops of small bowel in the left upper quadrant. There is contrast and air throughout the colon and down to the rectum. This is felt to represent a low-grade partial obstruction per the radiologist. Again the etiology remains unclear. Objective : Data - Labs CBC and BMP: 03/04/17 04:22 03/04/17 04:22 Labs - Last 24 Hours: Laboratory Results 03/04/17 Range/Units 04:22 WBC 8.61 (4.8-10.8) 10^3/uL RBC 3.91 L (4.70-6.10) 10^6/uL Hgb 12.6 L (14.0-18.0) g/dL Hct 37.8 L (42.0-52.0) % MCV 96.7 H (80-90) FL MCH 32.2 H (27-31) PG MCHC 33.3 (33-37) g/dL RDW Std Deviation 46.6 (39-50) fL RDW Coeff of Tony 13.7 (11.5-14.5) % Plt Count 217 (140-350) 10*3/uL MPV 10.1 (7.4-12.2) FL Immature Gran % (Auto) 0.1 (0-5) % Neut % (Auto) 61.5 (50-80) % Lymph % (Auto) 23.9 (10-50) % [place] % (Auto) 11.3 (5-15) % Eos % (Auto) 3.0 (0-8) % Baso % (Auto) 0.2 (0-1) % Immature Gran # (Auto) 0.01 10*3/UL Neut # (Auto) 5.29 10*3/UL Lymph # (Auto) 2.06 10*3/uL [place] # (Auto) 0.97 H (0.3-0.8) 10*3/UL Eos # (Auto) 0.26 10*3/UL Baso # (Auto) 0.02 10*3/UL WBC Morphology Comment Normal morphology (NORM) Plt Morphology Comment Normal morphology (NORM) RBC Morph Comment Normal morphology (NORM) Sodium 141 (135-145) meq/L Potassium 4.0 (3.8-5.2) meq/L Chloride 107 (98-112) meq/L Carbon Dioxide 25 (23-33) meq/L Anion Gap 9 (5-20) BUN 16 (7-22) mg/dL Creatinine 0.7 (0.70-1.50) mg/dL Estimated GFR > 60 (>60 ml/min/1.73m(2)) BUN/Creatinine Ratio 22.85 H (6-20) Glucose 109 (78-110) mg/dL Calculated Osmolality 293.0 H (267-292) mOsm/kg Lactic Acid 1.5 (0.70-2.10) MMOL/L Calcium 8.7 (8.7-10.7) mg/dL Total Bilirubin 0.8 (0.3-1.2) mg/dL AST 25 (21-57) IU/L ALT 48 (21-72) IU/L Alkaline Phosphatase 50 (38-126) IU/L Total Protein 6.0 L (6.1-8.0) g/dL Albumin 3.6 (3.5-4.8) g/dL Globulin 2.4 L (2.50-4.10) g/dL Albumin/Globulin Ratio 1.50 (1.3-2.0) mg/g - Imaging Imaging Details: See history of present illness. - Vital Signs Vital Signs and I&O: Vital Signs - Last Taken Temperature 97.8 F 03/04/17 04:46 Pulse Rate 71 03/04/17 04:46 Respiratory Rate 20 03/04/17 04:46 Blood Pressure 135/56 03/04/17 04:46 Pulse Ox 96 03/04/17 05:32 Intake and Output (24hr x 4 totals) 03/02/17 03/03/17 03/04/17 03/05/17 05:59 05:59 05:59 05:59 Intake Total 607 3270 110 Output Total 725 775 400 Balance -118 0000 -290 Objective : Exam - General General Appearance: No Acute Distress, Cooperative - Respiratory Respiratory Exam: Clear to Auscultation - Bilaterally, Breathing Non Labored - Cardiovascular Cardiovascular Exam: RRR, No Murmur - GI/Abdominal GI/Abdominal Exam: Normal Bowel Sounds, Non Tender, Soft Additional GI/Abdominal Exam Details: Abdomen is much softer and essentially nontender. It is less distended and less protuberant. Dilated loops of bowel cannot be felt through the abdominal wall today. - Neurological Neurological Exam: Alert, Oriented x 3 - Psychiatric Psychiatric Exam: Normal Affect, Normal Mood Assessment and Plan - Patient Problems (1) Small bowel obstruction Current Visit: Yes Status: Acute Priority: High Diagnosis Date: 03/02/17 Comment: No complete obstruction and no high-grade obstruction. Probably a low- grade partial obstructive process. Etiology remains unclear. Patient will need follow-up at home. At the present time patient will be allowed to shower. We will Hep-Lock his IV. We'll start a full liquid diet. From my perspective he may be discharged home when cleared medically. Patient should stay on a soft diet until he arrives home and follow up with his physician upon arrival. Please call if he fails a full liquid diet or I can be of other help. Otherwise I will sign off at this time..
[2017-03-04] MEDS: CARVEDILOL 12.5 MG TABLET PO SCH (10:06)
--- NOTE | 2017-03-04 12:11 | PDOC(PROG) ---
Date and Time of Service: 03/04/2017, 1210 Interval History: Stated that he had some cranial we and a milkshake earlier and he started having some bloating and increased abdominal pain. No nausea or vomiting. Still passing bowel movements but more explosive diarrhea and again his pain is increased. No chest pain and no shortness breath. Objective : Data - Labs CBC and BMP: 03/04/17 04:22 03/04/17 04:22 Labs - Last 24 Hours: Laboratory Results 03/04/17 Range/Units 04:22 WBC 8.61 (4.8-10.8) 10^3/uL RBC 3.91 L (4.70-6.10) 10^6/uL Hgb 12.6 L (14.0-18.0) g/dL Hct 37.8 L (42.0-52.0) % MCV 96.7 H (80-90) FL MCH 32.2 H (27-31) PG MCHC 33.3 (33-37) g/dL RDW Std Deviation 46.6 (39-50) fL RDW Coeff of Tony 13.7 (11.5-14.5) % Plt Count 217 (140-350) 10*3/uL MPV 10.1 (7.4-12.2) FL Immature Gran % (Auto) 0.1 (0-5) % Neut % (Auto) 61.5 (50-80) % Lymph % (Auto) 23.9 (10-50) % [place] % (Auto) 11.3 (5-15) % Eos % (Auto) 3.0 (0-8) % Baso % (Auto) 0.2 (0-1) % Immature Gran # (Auto) 0.01 10*3/UL Neut # (Auto) 5.29 10*3/UL Lymph # (Auto) 2.06 10*3/uL [place] # (Auto) 0.97 H (0.3-0.8) 10*3/UL Eos # (Auto) 0.26 10*3/UL Baso # (Auto) 0.02 10*3/UL WBC Morphology Comment Normal morphology (NORM) Plt Morphology Comment Normal morphology (NORM) RBC Morph Comment Normal morphology (NORM) Sodium 141 (135-145) meq/L Potassium 4.0 (3.8-5.2) meq/L Chloride 107 (98-112) meq/L Carbon Dioxide 25 (23-33) meq/L Anion Gap 9 (5-20) BUN 16 (7-22) mg/dL Creatinine 0.7 (0.70-1.50) mg/dL Estimated GFR > 60 (>60 ml/min/1.73m(2)) BUN/Creatinine Ratio 22.85 H (6-20) Glucose 109 (78-110) mg/dL Calculated Osmolality 293.0 H (267-292) mOsm/kg Lactic Acid 1.5 (0.70-2.10) MMOL/L Calcium 8.7 (8.7-10.7) mg/dL Total Bilirubin 0.8 (0.3-1.2) mg/dL AST 25 (21-57) IU/L ALT 48 (21-72) IU/L Alkaline Phosphatase 50 (38-126) IU/L Total Protein 6.0 L (6.1-8.0) g/dL Albumin 3.6 (3.5-4.8) g/dL Globulin 2.4 L (2.50-4.10) g/dL Albumin/Globulin Ratio 1.50 (1.3-2.0) mg/g - Imaging X-Ray Status: Image Reviewed by Me (KUB from earlier today, on my view shows some dilated loops of small bowel, but there is contrast from yesterday's Gastrografin study. The dilated loops do appear smaller than on initial CT scans and studies.) Objective : Exam - General General Appearance: Cooperative, Obese Additional General Exam Details: Vital Signs - Last Taken Temperature 97.7 F 03/04/17 09:00 Pulse Rate 60 03/04/17 09:00 Respiratory Rate 18 03/04/17 09:00 Blood Pressure 142/68 03/04/17 09:00 Pulse Ox 93 03/04/17 09:00 Appears to be in more pain today. - Eye Eye Exam: No Scleral Icterus - ENT ENT Exam: Mucous Membranes Moist - Respiratory Respiratory Exam: Clear to Auscultation - Bilaterally, Breathing Non Labored - Cardiovascular Cardiovascular Exam: RRR, No Murmur, No Clicks, No Gallops, No Rubs, No JVD - GI/Abdominal GI/Abdominal Exam: Hypoactive Bowel Sounds Additional GI/Abdominal Exam Details: Tympanic to percussion, some tenderness, particularly in the left mid lower quadrant. - Extremities Extremities Exam: No Clubbing Present, No Edema Present, No Cyanosis Present - Neurological Neurological Exam: Alert, Oriented x 3, No Facial Droop, Speech Intact / Clear, Moves All Extremities Equally Assessment and Plan - Patient Problems (1) Small bowel obstruction Current Visit: Yes Status: Acute Priority: High Diagnosis Date: 03/02/17 (2) Coronary artery disease Current Visit: Yes Status: Acute Qualifiers: Coronary Disease-Associated Artery/Lesion type: [place] artery Associated angina: without angina (3) Hypertension Current Visit: Yes Status: Acute Qualifiers: Hypertension type: essential hypertension Qualified Description: Essential hypertension Qualifier Code(s): (I10) Essential (primary) hypertension (4) Hypercholesterolemia Current Visit: Yes Status: Acute (5) BPH (benign prostatic hyperplasia) Current Visit: Yes Status: Acute Qualifiers: Lower urinary tract symptom presence: symptoms present Lower urinary tract symptom detail: unspecified Qualified Description: Benign prostatic hyperplasia with lower urinary tract symptoms, symptom details unspecified Qualifier Code(s): (N40.1) Benign prostatic hyperplasia with lower urinary tract symptoms, (R35.0) Frequency of micturition (6) History of stroke Current Visit: Yes Status: Acute - Assessment / Plan Additional Assessment/Plan Details: I discussed the fact that the patient's pain has worsened with full liquid diet with surgery, and they will see patient a little bit later today. We will make the patient nothing by mouth. We'll start some fluids. We'll get a stat KUB. I think regardless of management plan from surgery site, I think the patient needs to remain here with the increase in pain and will not discharge him today. Check labs tomorrow.
[2017-03-04] MEDS ORDERED: Sodium Chloride 0.9% 1,000 ML PRIMARY IV SCH (12:15)
[2017-03-04] MEDS ORDERED: Lactated Ringers 1,000 ML PRIMARY IV ONE ×2 (13:02→16:37)
--- NOTE | 2017-03-04 13:02 | DI ---
IVETH, 03/04/2017 11:44 AM: Clinical History: Increased bloating and abdominal pain. Partial small bowel obstruction. Previous Exam: 03/04/2017, at 0700 hours. There is less gas in the colon and the patient has expelled all of the contrast in the colon indicati ng the patient has had a bowel movement. There are still mildly dilated loops of small bowel in the l eft upper quadrant in the same location as on the earlier film. This patient may still have a partial small bowel obstruction, but low-grade. Reading: There is less gas and no contrast in the large bowel indicating the patient has had a bowel movement. Residual dilated loops of small bowel are located in the left upper quadrant in this patient may sti ll have a low-grade partial small bowel obstruction.
--- NOTE | 2017-03-04 13:11 | PDOC(PROG) ---
Date and Time of Service: 03/04/2017 1 PM Interval History: Patient had some cream of wheat and a milkshake. He became more distended and started developing abdominal cramps. X-ray was done which still shows a partial bowel obstruction. He has dilated loops of in his left upper quadrant and mid abdomen. His distal colon is decompressed. Patient has failed a trial of conservative therapy. I have recommended exploratory laparotomy as we do not have an etiology for his bowel obstructive process. He consents and desires to proceed at this time. Objective : Data - Labs CBC and BMP: 03/04/17 04:22 03/04/17 04:22 Labs - Last 24 Hours: Laboratory Results 03/04/17 Range/Units 04:22 WBC 8.61 (4.8-10.8) 10^3/uL RBC 3.91 L (4.70-6.10) 10^6/uL Hgb 12.6 L (14.0-18.0) g/dL Hct 37.8 L (42.0-52.0) % MCV 96.7 H (80-90) FL MCH 32.2 H (27-31) PG MCHC 33.3 (33-37) g/dL RDW Std Deviation 46.6 (39-50) fL RDW Coeff of Tony 13.7 (11.5-14.5) % Plt Count 217 (140-350) 10*3/uL MPV 10.1 (7.4-12.2) FL Immature Gran % (Auto) 0.1 (0-5) % Neut % (Auto) 61.5 (50-80) % Lymph % (Auto) 23.9 (10-50) % [place] % (Auto) 11.3 (5-15) % Eos % (Auto) 3.0 (0-8) % Baso % (Auto) 0.2 (0-1) % Immature Gran # (Auto) 0.01 10*3/UL Neut # (Auto) 5.29 10*3/UL Lymph # (Auto) 2.06 10*3/uL [place] # (Auto) 0.97 H (0.3-0.8) 10*3/UL Eos # (Auto) 0.26 10*3/UL Baso # (Auto) 0.02 10*3/UL WBC Morphology Comment Normal morphology (NORM) Plt Morphology Comment Normal morphology (NORM) RBC Morph Comment Normal morphology (NORM) Sodium 141 (135-145) meq/L Potassium 4.0 (3.8-5.2) meq/L Chloride 107 (98-112) meq/L Carbon Dioxide 25 (23-33) meq/L Anion Gap 9 (5-20) BUN 16 (7-22) mg/dL Creatinine 0.7 (0.70-1.50) mg/dL Estimated GFR > 60 (>60 ml/min/1.73m(2)) BUN/Creatinine Ratio 22.85 H (6-20) Glucose 109 (78-110) mg/dL Calculated Osmolality 293.0 H (267-292) mOsm/kg Lactic Acid 1.5 (0.70-2.10) MMOL/L Calcium 8.7 (8.7-10.7) mg/dL Total Bilirubin 0.8 (0.3-1.2) mg/dL AST 25 (21-57) IU/L ALT 48 (21-72) IU/L Alkaline Phosphatase 50 (38-126) IU/L Total Protein 6.0 L (6.1-8.0) g/dL Albumin 3.6 (3.5-4.8) g/dL Globulin 2.4 L (2.50-4.10) g/dL Albumin/Globulin Ratio 1.50 (1.3-2.0) mg/g - Vital Signs Vital Signs and I&O: Vital Signs - Last Taken Temperature 98.4 F 03/04/17 12:41 Pulse Rate 66 03/04/17 12:41 Respiratory Rate 18 03/04/17 12:41 Blood Pressure 149/72 03/04/17 12:41 Pulse Ox 94 03/04/17 12:41 Intake and Output (24hr x 4 totals) 03/02/17 03/03/17 03/04/17 03/05/17 05:59 05:59 05:59 05:59 Intake Total 607 3270 855 Output Total 725 795 750 Balance -118 2495 105 Objective : Exam - General General Appearance: No Acute Distress, Cooperative - Respiratory Respiratory Exam: Clear to Auscultation - Bilaterally, Breathing Non Labored - Cardiovascular Cardiovascular Exam: RRR, No Murmur - GI/Abdominal GI/Abdominal Exam: Soft Additional GI/Abdominal Exam Details: Abdomen is more distended following oral intake. He has some mild diffuse abdominal tenderness. Certainly not an acute abdomen. Clearly he is more distended and tender than it was this morning Assessment and Plan - Patient Problems (1) Small bowel obstruction Current Visit: Yes Status: Acute Priority: High Diagnosis Date: 03/02/17 Comment: Partial small bowel obstruction. The patient has failed a trial of oral intake. I have recommended and he has accepted proceeding with an exploratory laparotomy. He understands there is a possibility of a bowel resection. He understands there is a possibility of a temporary ostomy.The procedure has been discussed with the patient in complete yet simple terms including benefits, risks, and alternatives. All questions have been answered. Informed consent has been obtained.
[2017-03-04] MEDS ORDERED: NORMAL SALINE 10 ML SYRINGE FLUSH IVP PRN ×3 (13:12→19:00)
[2017-03-04] MEDS ORDERED: LIDOCAINE W/ SODIUM BICARB 0.5 ML SYR SUBD PRN ×2 (13:12→19:00)
[2017-03-04] MEDS ORDERED: Lactated Ringers 1,000 ML PRIMARY IV SCH ×2 (13:15→17:45)
[2017-03-04] MEDS ORDERED: Ertapenem Inj 1 GM in Sodium Chloride 0.9% 100 ML IV SCH (13:15)
[2017-03-04] MEDS ORDERED: MIDAZOLAM 5 MG/1 ML ONE ×2 (14:16→15:34)
[2017-03-04] MEDS ORDERED: MIDAZOLAM 5 MG/1 ML IVP ONE (14:30)
[2017-03-04] MEDS ORDERED: fentaNYL Inj 250 MCG/5 ML VIAL ONE (15:34)
[2017-03-04] MEDS ORDERED: LIDOCAINE MPF 2% - 5 ML (20 MG/1 ML) ONE (15:35)
[2017-03-04] MEDS ORDERED: ROCURONIUM 10 MG/1 ML - 5 ML VIAL IVP ONE (15:37)
[2017-03-04] MEDS ORDERED: SUCCINYLCHOLINE CHLORIDE 20 MG/1 ML - 10 ML ONE (15:37)
[2017-03-04] MEDS ORDERED: SUGAMMADEX SODIUM 200 MG/2 ML VIAL IV ONE (16:39)
[2017-03-04] MEDS ORDERED: HYDROmorphone 2 MG/1 ML ONE (16:44)
[2017-03-04] MEDS ORDERED: Bacteriostatic NaCl Inj 30ml Vial ONE (16:46)
[2017-03-04] MEDS ORDERED: Sodium Chloride 0.9% vial 10 ML ONE (16:46)
[2017-03-04] MEDS ORDERED: BUPivacaine Liposome/PF (Exparel) Inj 20ml vial INFIL ONE ×2 (16:47→16:50)
[2017-03-04] MEDS ORDERED: ONDANSETRON 4 MG/2 ML VIAL ONE (16:48)
[2017-03-04] MEDS ORDERED: KETOROLAC 30 MG/1 ML VIAL ONE (16:48)
[2017-03-04] MEDS: fentaNYL Inj 100 MCG/2 ML VIAL IVP PRN ×2 (17:24→17:36)
--- NOTE | 2017-03-04 17:26 | GEN.OPNOTE ---
Operative Note Surgery Date: 03/04/17 Preoperative Diagnosis: High-grade partial small bowel obstruction. 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 Procedure: laparotomy with reduction of small bowel volvulus. Surgeon: Ted Thomas MD Pump House Engineer: He Mckenna MD Anesthesia Provider: Santiago Cruz CRNA Anesthesia Type: General Estimated Blood Loss (mL): 15 Fluids: 1500 mL of crystalloid. 1 g of IV Invanz prior to the start of the procedure. 30 mg of IV Toradol at the end of the procedure. Exparel diluted to 60 mL injected into the subcutaneous tissue. Pathology: No specimens for pathology. Indications: Patient presented with a small bowel obstruction. He had a Gastrografin challenge. The Gastrografin got through but he still had dilated proximal small bowel. He was started on clear liquids yesterday and tolerated that. He was advanced to full liquids today. He had some full liquids and became very bloated with cramping abdominal pain. X-ray showed significantly dilated proximal small bowel and a decompressed colon. As he was intolerant of conservative treatment and we proceeded with exploratory laparotomy. Findings: Volvulus of the base of the mesentery in the mid small bowel. The proximal jejunum was of normal caliber as was the terminal ileum. The mid small bowel was dilated proximally 3 times normal in size. There was edema in the mesentery. There was also some bruising in the mesentery. There was some free fluid as well. No other pathology was identified. The NG tube was palpated in the stomach. The liver was palpably unremarkable. The appendix cecum and sigmoid colon were unremarkable. Complications: None. Operative Summary: The patient was taken to the operating suite and placed on the operating table in a supine position. Following the induction of general anesthetic the abdomen was prepped and draped in a sterile fashion. A Oshea and an NG tube were placed. A surgical timeout was done. An infraumbilical incision was made. The peritoneal cavity was entered. There was significantly dilated small bowel. It was necessary to extend the incision because of intraperitoneal fat, dilated bowel, and lack of adequate room to run the bowel. The incision was extended from above the umbilicus to the symphysis pubis. Once we had an adequate incision I followed the dilated bowel back to the ligament of Treitz. The bowel distal to the Ligament of Treitz was normal in size. It was dilated in the midportion and decompressed distally where it entered the cecum. Palpation revealed a twist in the base of the mesentery. It was derotated. The bowel was then run from the ligament of Treitz to the cecum. Other than mesenteric edema and some bruising of the mesentery at the level of the dilated bowel there was no other significant pathology. No adhesive bands or tumors were identified. The small bowel was placed in a relative anatomic position. The appendix was visualized and was normal. The cecum was normal as well. The sigmoid colon was normal. The liver was palpably normal. The NG tube was palpated within the stomach. The abdomen was irrigated. The small bowel was covered with omentum. The midline fascia was closed with running #1 Prolene. One suture was started from each end and they were tied independently in approximately the middle of the incision. The wound was irrigated. The subcutaneous tissue was injected with Exparel. The skin was closed with surgical bhavani followed by an appropriate dressing. The patient tolerated all aspects of the procedure well without complication. He was taken to the recovery room in stable condition. All counts were correct. Patient Problems - Patient Problem List (1) Small bowel obstruction Current Visit: Yes Status: Acute Diagnosis Date: 03/02/17 Priority: High
[2017-03-04] MEDS ORDERED: HYDROmorphone 2 MG/1 ML IVP PRN (17:43)
[2017-03-04] MEDS ORDERED: D5-1/2NS + 20mEq KCL 1,000 ML PRIMARY IV SCH (17:45)
[2017-03-04] MEDS: HYDROmorphone 2 MG/1 ML IVP PRN ×3 (17:50→21:14)
[2017-03-04] MEDS ORDERED: Metoclopramide Inj 10 MG/2 ML VIAL IVP SCH (18:00)
[2017-03-04] MEDS ORDERED: LABETALOL 20 MG/4 ML (5 MG/1 ML) SYRINGE IVP PRN (19:00)
[2017-03-04] MEDS ORDERED: ONDANSETRON 4 MG/2 ML VIAL IVP PRN (19:00)
[2017-03-04] MEDS: KETOROLAC 30 MG/1 ML VIAL IVP SCH (22:51)
[2017-03-04] MEDS ORDERED: KETOROLAC 30 MG/1 ML VIAL IVP SCH ×2 (23:00)
[2017-03-05] MEDS ORDERED: Pantoprazole Inj 40 MG in Normal Saline Flush 10 ML IVP SCH (09:00)
[2017-03-05 15:26] LABS: Hematocrit [HCT] 38.7 % (42.0-52.0); Hemoglobin [HGB] 13.2 g/dL (14.0-18.0); MEAN CORPUSCULAR HEMOGLOBIN 32.5 PG (27-31); MEAN CORPUSCULAR HGB CONC 34.1 g/dL (33-37); MEAN CORPUSCULAR VOLUME 95.3 FL (80-90); RED BLOOD COUNT 4.06 10^6/uL (4.70-6.10)
[2017-03-05 15:27] LABS: BASOPHILS # (AUTO) 0.02 10*3/UL; BASOPHILS % (AUTO) 0.2 % (0-1); EOSINOPHILS # (AUTO) 0.08 10*3/UL; EOSINOPHILS % (AUTO) 0.7 % (0-8); LYMPHOCYTES # (AUTO) 1.24 10*3/uL; MONOCYTES # (AUTO) 1.35 10*3/UL (0.3-0.8); MONOCYTES % (AUTO) 11.1 % (5-15); NEUTROPHILS # (AUTO) 9.42 10*3/UL; NEUTROPHILS % (AUTO) 77.5 % (50-80)
[2017-03-05 15:28] LABS: PLATELET MORPHOLOGY COMMENT NORMAL MORPHOLOGY (NORM); RBC MORPHOLOGY COMMENT NORMAL MORPHOLOGY (NORM); WBC MORPHOLOGY COMMENT NORMAL MORPHOLOGY (NORM)
[2017-03-05 15:30] LABS: BUN/CREATININE RATIO 2.25 (6-20)
[2017-03-05 15:31] LABS: MAGNESIUM 1.8 mg/dL (1.6-2.4); SERUM ALBUMIN 3.8 g/dL (3.5-4.8)
[2017-03-05] MEDS: D5-1/2NS + 20mEq KCL 1,000 ML PRIMARY IV SCH ×3 (16:54→20:00)
[2017-03-05] MEDS: Metoclopramide Inj 10 MG/2 ML VIAL IVP SCH ×3 (16:57→23:35)
[2017-03-05] MEDS: CARVEDILOL 12.5 MG TABLET PO SCH (16:57)
[2017-03-05] MEDS: Pantoprazole Inj 40 MG in Normal Saline Flush 10 ML IVP SCH (16:58)
[2017-03-05] MEDS: KETOROLAC 30 MG/1 ML VIAL IVP SCH (16:59)
[2017-03-05] MEDS: KETOROLAC 15 MG/1 ML VIAL IVP SCH ×2 (17:31→22:53)
[2017-03-05] MEDS: HYDROmorphone 2 MG/1 ML IVP PRN ×2 (18:11→21:35)
[2017-03-05] MEDS: NORMAL SALINE 10 ML SYRINGE FLUSH IVP PRN (21:41)
[2017-03-06] MEDS: D5-1/2NS + 20mEq KCL 1,000 ML PRIMARY IV SCH ×3 (03:44→20:30)
[2017-03-06] MEDS: KETOROLAC 15 MG/1 ML VIAL IVP SCH ×4 (04:06→22:28)
[2017-03-06] MEDS ORDERED: HYDROmorphone 2 MG/1 ML IVP PRN (05:26)
[2017-03-06] MEDS: Metoclopramide Inj 10 MG/2 ML VIAL IVP SCH ×3 (05:46→16:59)
[2017-03-06 05:54] LABS: BASOPHILS # (AUTO) 0.03 10*3/UL; BASOPHILS % (AUTO) 0.3 % (0-1); EOSINOPHILS # (AUTO) 0.26 10*3/UL; EOSINOPHILS % (AUTO) 2.3 % (0-8); Hematocrit [HCT] 39.1 % (42.0-52.0); Hemoglobin [HGB] 13.5 g/dL (14.0-18.0); LYMPHOCYTES # (AUTO) 1.24 10*3/uL; MEAN CORPUSCULAR HEMOGLOBIN 32.7 PG (27-31); MEAN CORPUSCULAR HGB CONC 34.5 g/dL (33-37); MEAN CORPUSCULAR VOLUME 94.7 FL (80-90); MEAN PLATELET VOLUME 10.2 FL (7.4-12.2); MONOCYTES # (AUTO) 1.29 10*3/UL (0.3-0.8); MONOCYTES % (AUTO) 11.6 % (5-15); NEUTROPHILS # (AUTO) 8.27 10*3/UL; NEUTROPHILS % (AUTO) 74.4 % (50-80); RED BLOOD COUNT 4.13 10^6/uL (4.70-6.10)
[2017-03-06 05:55] LABS: PLATELET MORPHOLOGY COMMENT NORMAL MORPHOLOGY (NORM); RBC MORPHOLOGY COMMENT NORMAL MORPHOLOGY (NORM); WBC MORPHOLOGY COMMENT NORMAL MORPHOLOGY (NORM)
[2017-03-06 06:03] LABS: BLOOD UREA NITROGEN 10 mg/dL (7-22); BUN/CREATININE RATIO 16.66 (6-20)
[2017-03-06] MEDS ORDERED: DUTASTERIDE 0.5 MG PO SCH (09:00)
--- NOTE | 2017-03-06 09:03 | PDOC(PROG) ---
Subjective Post Op Day: postop day 2 Pain Management: Peripheral BRAKE [employer] FREIGHT Oshea Catheter: Yes Flatus: Yes Diet: NPO Date and Time of Service: 03/06/2017 at 9:00 Interval History: Patient states he is doing well. He started passing gas. He has no abdominal pain. Objective : Data - Labs CBC and BMP: 03/06/17 04:38 03/06/17 04:38 - Vital Signs Vital Signs and I&O: Vital Signs - Last Taken Temperature 97.9 F 03/06/17 07:21 Pulse Rate 67 03/06/17 07:21 Respiratory Rate 20 03/06/17 07:21 Blood Pressure 175/82 03/06/17 07:21 Pulse Ox 95 03/06/17 07:21 Intake and Output (24hr x 4 totals) 03/04/17 03/05/17 03/06/17 03/07/17 05:59 05:59 05:59 05:59 Intake Total 3270 / 3270 2655 / 2655 3182 / 3182 Output Total 775 / 775 1440 / 1440 1575 / 1575 475 / 475 Balance 2495 / 2495 1215 / 1215 1607 / 1607 -475 / -475 Objective : Exam - General General Appearance: No Acute Distress, Cooperative - Neck Neck Exam: Normal Inspection, Full ROM - Respiratory Respiratory Exam: Clear to Auscultation - Bilaterally - Cardiovascular Cardiovascular Exam: RRR - GI/Abdominal GI/Abdominal Exam: Non Tender, Non Distended, Soft Assessment and Plan - Patient Problems (1) Small bowel obstruction Current Visit: Yes Status: Acute Priority: High Onset Date: 03/02/17 Code(s): K56.69 - Other intestinal obstruction - Assessment / Plan Additional Assessment/Plan Details: Patient overall is doing very well. Abdomen is nondistended he's passing flatus. I think he had his NG tube DC'd and Oshea DC'd. Start on clear liquid diets. I believe he restarted on all his oral medicines. I would like to have him stay in the hospital couple days since he has to travel down to [place]
--- NOTE | 2017-03-06 09:18 | PDOC(PROG) ---
Date and Time of Service: 03/06/2017 9:20 AM Interval History: Subjective Patient denying new symptoms, apparently he was the confused this morning and that's resolved. He did pass gas yesterday and this morning. Dr. Mckenna ordered to DC his NG and his Oshea. Continue to encourage mobilization. He put him on clear liquid. Objective : Data - Labs CBC and BMP: 03/06/17 04:38 03/06/17 04:38 Objective : Exam - General General Appearance: No Acute Distress, Cooperative, Obese - Head Head Exam: Normal Inspection, Atraumatic - Eye Eye Exam: Normal Appearance - ENT ENT Exam: Normal Exam - Neck Neck Exam: Normal Inspection - Respiratory Respiratory Exam: Clear to Auscultation - Bilaterally - Cardiovascular Cardiovascular Exam: RRR - GI/Abdominal GI/Abdominal Exam: Non Tender, Soft, No Organomegaly Additional GI/Abdominal Exam Details: Bowel sounds sluggish. Dressing applied to the wound. - Rectal Rectal Exam: Deferred - External Exam: Deferred - Extremities Extremities Exam: Normal Inspection - Back Back Exam: Normal Inspection - Neurological Neurological Exam: Alert, Oriented x 3, CN II-XII Intact, Speech Intact / Clear , Moves All Extremities Equally - Psychiatric Psychiatric Exam: Normal Affect - Integumentary Integumentary Exam: Normal Color Assessment and Plan - Patient Problems (1) Small bowel obstruction Current Visit: Yes Status: Acute Priority: High Onset Date: 03/02/17 Comment: Status post surgery day 2. Since Dr. Mckenna DC'd the NG I think we can restart him on his oral medications. I'll start the Coreg and amlodipine hold off on the Diovan for now. Code(s): K56.69 - Other intestinal obstruction (2) Hypertension Current Visit: Yes Status: Acute Comment: Restart as I said Coreg and amlodipine hold on the Diovan for now. Code(s): I10 - Essential (primary) hypertension Qualifiers: Hypertension type: essential hypertension Qualified Code(s): I10 - Essential (primary) hypertension (3) Coronary artery disease Current Visit: Yes Status: Acute Comment: Restart the Coreg and the Lipitor. Code(s): I25.10 - Atherosclerotic heart disease of [place] coronary artery without angina pectoris Qualifiers: Coronary Disease-Associated Artery/Lesion type: [place] artery Associated angina: without angina (4) BPH (benign prostatic hyperplasia) Current Visit: Yes Status: Acute Comment: Restart his Avodart. Code(s): N40.0 - Benign prostatic hyperplasia without lower urinary tract symptoms Qualifiers: Lower urinary tract symptom presence: symptoms present Lower urinary tract symptom detail: unspecified Qualified Code(s): N40.1 - Benign prostatic hyperplasia with lower urinary tract symptoms (5) DVT prophylaxis Current Visit: Yes Status: Acute Comment: Spoke with the Dr. Mckenna and he wants him on SCDs for now.
[2017-03-06] MEDS: Pantoprazole Inj 40 MG in Normal Saline Flush 10 ML IVP SCH (10:06)
[2017-03-06] MEDS: CARVEDILOL 12.5 MG TABLET PO SCH (10:07)
[2017-03-06] MEDS: AmLODIPine Tab 5 MG TABLET PO SCH (10:08)
[2017-03-06] MEDS: Potassium Chloride Tab 10 MEQ TAB PO SCH (16:59)
[2017-03-06] MEDS: ATORVASTATIN 40 MG TABLET PO SCH (21:23)
[2017-03-07] MEDS: Metoclopramide Inj 10 MG/2 ML VIAL IVP SCH ×2 (00:12→06:32)
[2017-03-07] MEDS: D5-1/2NS + 20mEq KCL 1,000 ML PRIMARY IV SCH (03:40)
[2017-03-07] MEDS: KETOROLAC 15 MG/1 ML VIAL IVP SCH (04:37)
[2017-03-07] MEDS: NORMAL SALINE 10 ML SYRINGE FLUSH IVP PRN (04:38)
[2017-03-07 05:14] LABS: BASOPHILS # (AUTO) 0.12 10*3/UL; BASOPHILS % (AUTO) 1.5 % (0-1); EOSINOPHILS # (AUTO) 0.37 10*3/UL; EOSINOPHILS % (AUTO) 4.7 % (0-8); Hematocrit [HCT] 38.4 % (42.0-52.0); Hemoglobin [HGB] 13.2 g/dL (14.0-18.0); LYMPHOCYTES # (AUTO) 1.61 10*3/uL; MEAN CORPUSCULAR HEMOGLOBIN 32.4 PG (27-31); MEAN CORPUSCULAR HGB CONC 34.4 g/dL (33-37); MEAN CORPUSCULAR VOLUME 94.3 FL (80-90); MEAN PLATELET VOLUME 9.9 FL (7.4-12.2); MONOCYTES # (AUTO) 1.06 10*3/UL (0.3-0.8); MONOCYTES % (AUTO) 13.4 % (5-15); NEUTROPHILS # (AUTO) 4.75 10*3/UL; NEUTROPHILS % (AUTO) 59.8 % (50-80); RED BLOOD COUNT 4.07 10^6/uL (4.70-6.10)
[2017-03-07 05:16] LABS: PLATELET MORPHOLOGY COMMENT NORMAL MORPHOLOGY (NORM); RBC MORPHOLOGY COMMENT NORMAL MORPHOLOGY (NORM); WBC MORPHOLOGY COMMENT NORMAL MORPHOLOGY (NORM)
[2017-03-07 05:20] LABS: BLOOD UREA NITROGEN 9 mg/dL (7-22); BUN/CREATININE RATIO 12.85 (6-20)
[2017-03-07] MEDS: Potassium Chloride Tab 10 MEQ TAB PO SCH ×3 (06:32→16:10)
[2017-03-07] MEDS: Pantoprazole Inj 40 MG in Normal Saline Flush 10 ML IVP SCH (08:26)
[2017-03-07] MEDS: AmLODIPine Tab 5 MG TABLET PO SCH (08:26)
[2017-03-07] MEDS: CARVEDILOL 12.5 MG TABLET PO SCH (08:26)
[2017-03-07] MEDS ORDERED: KETOROLAC 15 MG/1 ML VIAL IVP PRN (08:55)
--- NOTE | 2017-03-07 09:03 | PDOC(PROG) ---
Date and Time of Service: 03/07/2017 9 AM Interval History: Subjective Patient feels well,no abdominal pain, no vomiting. He did have multiple bowel movements. Objective : Data - Labs CBC and BMP: 03/07/17 04:35 03/07/17 04:35 Objective : Exam - General General Appearance: No Acute Distress, Cooperative, Obese - Head Head Exam: Normal Inspection, Atraumatic - Eye Eye Exam: Normal Appearance - ENT ENT Exam: Normal Exam - Neck Neck Exam: Normal Inspection - Respiratory Respiratory Exam: Clear to Auscultation - Bilaterally - Cardiovascular Cardiovascular Exam: RRR - GI/Abdominal GI/Abdominal Exam: Normal Bowel Sounds, Non Distended, Soft Additional GI/Abdominal Exam Details: There is no significant tenderness. Dressing applied to the wound. - Rectal Rectal Exam: Deferred - External Exam: Deferred Exam: Deferred - Extremities Extremities Exam: Normal Inspection - Back Back Exam: Normal Inspection - Neurological Neurological Exam: Alert, Oriented x 3, CN II-XII Intact, Moves All Extremities Equally - Psychiatric Psychiatric Exam: Normal Affect Assessment and Plan - Patient Problems (1) Small bowel obstruction Current Visit: Yes Status: Acute Priority: High Onset Date: 03/02/17 Comment: Status post surgery day 3. He is doing well tolerating oral liquid he did have multiple bowel movements. I think will DC his fluids and advance his diet to soft diet. I did speak with Dr. Mckenna he is okay with this plan. Code(s): K56.69 - Other intestinal obstruction (2) Hypertension Current Visit: Yes Status: Acute Comment: Continue Coreg and amlodipine, will restart the Diovan at a lower dosage though. Code(s): I10 - Essential ( primary) hypertension Qualifiers: Hypertension type: essential hypertension Qualified Code(s): I10 - Essential (primary) hypertension (3) Coronary artery disease Current Visit: Yes Status: Acute Comment: Continue Coreg and Lipitor. Code (s): I25.10 - Atherosclerotic heart disease of [place] coronary artery without angina pectoris Qualifiers: Coronary Disease-Associated Artery/Lesion type: [place] artery Associated angina: without angina (4) BPH (benign prostatic hyperplasia) Current Visit: Yes Status: Acute Comment: Same med Code(s): N40.0 - Benign prostatic hyperplasia without lower urinary tract symptoms Qualifiers: Lower urinary tract symptom presence: symptoms present Lower urinary tract symptom detail: unspecified Qualified Code(s): N40.1 - Benign prostatic hyperplasia with lower urinary tract symptoms (5) DVT prophylaxis Current Visit: Yes Status: Acute Comment: He is on SCDs. (6) Hypokalemia Current Visit: Yes Status: Acute Comment: Continue replacement Code(s): E87.6 - Hypokalemia
[2017-03-07] MEDS ORDERED: Potassium Chloride Tab 10 MEQ TAB PO ONE (09:12)
[2017-03-07] MEDS: Valsartan Tab 160 MG TAB PO SCH (09:21)
[2017-03-07] MEDS ORDERED: Metoclopramide Inj 10 MG/2 ML VIAL IVP PRN (09:22)
--- NOTE | 2017-03-07 12:53 | PDOC(PROG) ---
Subjective Post Op Day: postop day 3 Pain Management: PO Oshea Catheter: No Flatus: Yes Diet: Regular Date and Time of Service: 03/07/2017 at 1300 Interval History: Patient states he is doing well having no problems. He's had bowel movements. Objective : Data - Labs CBC and BMP: 03/07/17 04:35 03/07/17 04:35 - Vital Signs Vital Signs and I&O: Vital Signs - Last Taken Temperature 97.2 F 03/07/17 12:44 Pulse Rate 80 03/07/17 12:44 Respiratory Rate 20 03/07/17 12:44 Blood Pressure 146/68 03/07/17 12:44 Pulse Ox 97 03/07/17 12:44 Intake and Output (24hr x 4 totals) 03/05/17 03/06/17 03/07/17 03/08/17 05:59 05:59 05:59 05:59 Intake Total 2655 / 2655 3182 / 3182 2196 / 2196 326 / 326 Output Total 1440 / 1440 1575 / 1575 3800 / 3800 650 / 650 Balance 1215 / 1215 1607 / 1607 -1604 / -1604 -324 / -324 Objective : Exam - General General Appearance: No Acute Distress, Cooperative - Head Head Exam: Normal Inspection, Normocephalic, Atraumatic - Eye Eye Exam: Normal Appearance, PERRL, EOMI, No Scleral Icterus - ENT ENT Exam: Normal Exam, Normal External Ear Exam, Normal Oropharynx, TM's Normal Bilaterally, Mucous Membranes Moist - Neck Neck Exam: Normal Inspection, Full ROM, No Tenderness - Respiratory Respiratory Exam: Clear to Auscultation - Bilaterally, Breathing Non Labored, Normal To Percussion, Normal to Percussion and Palpation - Cardiovascular Cardiovascular Exam: RRR, No Murmur, No Clicks, No Gallops, No Rubs, PMI Non- Displaced - GI/Abdominal GI/Abdominal Exam: Normal Bowel Sounds, Non Tender, Non Distended, Soft, No Masses, No Hepatomegaly, No Splenomegaly, No Organomegaly - Rectal Rectal Exam: Deferred - External Exam: Deferred Exam: Deferred - Back Back Exam: Normal Inspection, Full ROM, No CVA Tenderness - Neurological Neurological Exam: Alert, Oriented x 3, Reflexes Normal, Normal Gait, CN II-XII Intact, No Facial Droop, Moves All Extremities Equally - Psychiatric Psychiatric Exam: Normal Affect, Normal Mood - Integumentary Integumentary Exam: Normal Color, Warm, Dry, Intact Assessment and Plan - Patient Problems (1) Small bowel obstruction Current Visit: Yes Status: Acute Priority: High Onset Date: 03/02/17 Comment: Status post surgery day 3. He is doing well tolerating oral liquid he did have multiple bowel movements. I think will DC his fluids and advance his diet to soft diet. I did speak with Dr. Mckenna he is okay with this plan. Code(s): K56.69 - Other intestinal obstruction - Assessment / Plan Additional Assessment/Plan Details: Patient sees resolving his ileus. He can be advanced on his diet. If tolerates regular food can be discharged home in a.m.
[2017-03-07] MEDS: ATORVASTATIN 40 MG TABLET PO SCH (21:08)
[2017-03-08 05:34] LABS: BLOOD UREA NITROGEN 14 mg/dL (7-22)
[2017-03-08] MEDS: Potassium Chloride Tab 10 MEQ TAB PO SCH (09:07)
[2017-03-08] MEDS: AmLODIPine Tab 5 MG TABLET PO SCH (09:07)
[2017-03-08] MEDS: Valsartan Tab 160 MG TAB PO SCH (09:07)
[2017-03-08] MEDS: CARVEDILOL 12.5 MG TABLET PO SCH (09:07)
[2017-03-08 10:16] VITALS: BP 156/71; RESP 20; TEMP 97.2
--- NOTE | 2017-03-08 11:33 | PDOC(PROG) ---
Subjective Post Op Day: postop Pain Management: PO Oshea Catheter: No Flatus: Yes Diet: Regular Date and Time of Service: 1135 on 03/08/2017 Interval History: Patient is doing fine tolerating diet no problem have multiple bowel movements Objective : Data - Labs CBC and BMP: 03/07/17 04:35 03/08/17 04:12 - Vital Signs Vital Signs and I&O: Vital Signs - Last Taken Temperature 97.2 F 03/08/17 09:00 Pulse Rate 78 03/08/17 09:00 Respiratory Rate 20 03/08/17 09:00 Blood Pressure 156/71 03/08/17 09:00 Pulse Ox 94 03/08/17 09:00 Intake and Output (24hr x 4 totals) 03/06/17 03/07/17 03/08/17 03/09/17 05:59 05:59 05:59 05:59 Intake Total 3182 / 3182 2196 / 2196 981 / 981 240 / 240 Output Total 1575 / 1575 3800 / 3800 1200 / 1200 Balance 1607 / 1607 -1604 / -1604 -219 / -219 240 / 240 Objective : Exam - GI/Abdominal GI/Abdominal Exam: Normal Bowel Sounds, Non Tender, Non Distended, Soft Assessment and Plan - Patient Problems (1) Small bowel obstruction Current Visit: Yes Status: Acute Priority: High Onset Date: 03/02/17 Comment: Status post surgery day 3. He is doing well tolerating oral liquid he did have multiple bowel movements. I think will DC his fluids and advance his diet to soft diet. I did speak with Dr. Mckenna he is okay with this plan. Code(s): K56.69 - Other intestinal obstruction - Assessment / Plan Additional Assessment/Plan Details: Okay to discharge home he will follow-up with his primary care doctor when he gets back to [place]. He needs to have bhavani removed and 10-14 days
--- NOTE | 2017-03-08 13:08 | DCSUMMARY ---
Hospitalization Summary Admit Date: 03/02/17 Discharge Date: 03/08/17 Hospital Course: Discharge diagnoses 1. Small bowel obstruction secondary to mid small bowel volvulus status post laparotomy with reduction of small bowel volvulus 2. Coronary artery disease status post CABG with 3 bypasses 10 years ago 3. 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 Recurrent kidney stones 5. Hypertension 6. Hyperlipidemia 7. BPH 8. Hypokalemia Hospital course This is 71 years old male with medical history significant for history of hypertension, coronary artery disease status post CABG 10 years ago, history of CVA that was in the setting of angioplasty with right hemiparesis that resolved , who presented to the hospital with complaint of abdominal pain and nausea and vomiting. Symptoms started the day before admission, him and his were driving from [place] to [place] on vacation as they were heading back home to [place]. They stopped in [facility] had breakfast and then the patient became ill. He vomited twice. In the morning of admission symptoms persisted with abdominal pain and distention. The patient was admitted for small bowel obstruction versus ileus and was admitted by Dr. Frazier please see his note. Patient had NG tube insertion and put on IV fluid. He had a small bowel follow the next day which showed no evidence of obstruction. He was tried on a clear liquid however that did not succeed and he was taken to surgery on the and that showed mid small bowel volvulus that was reduced. I saw him on the first postoperative day we continued with nasaogastric suction, continued with IV fluids and pain medication. On the second postoperative day he started to pass gas so the NG was discontinued he tolerated clear liquid. On the third postoperative day he had multiple bowel movements and patrick better so we DC'd his fluid switched him to soft diet to kept him for another day. on the day of discharge he was doing better still, tolerated diet the wound looks fine and was seen also by the surgeon, he felt he is ready for discharge home and follow- up with his primary. His bhavani can be taken out in 10-14 days. He did have mild hypokalemia so we discharged him on additional potassium. His potassium on day of discharge was 3.4. Laboratory Results 03/02/17 03/02/17 03/02/17 Range/Units 19:30 19:30 19:30 WBC 14.55 H (4.8-10.8) 10^3/uL RBC 4.75 (4.70-6.10) 10^6/uL Hgb 16.0 (14.0-18.0) g/dL Hct 44.3 (42.0-52.0) % MCV 93.3 H (80-90) FL MCH 33.7 H (27-31) PG MCHC 36.1 (33-37) g/dL RDW Std Deviation 45.2 (39-50) fL RDW Coeff of Tony 13.6 (11.5-14.5) % Plt Count 279 (140-350) 10*3/uL MPV 9.8 (7.4-12.2) FL Immature Gran % (Auto) 0.2 (0-5) % Neut % (Auto) 86.3 H (50-80) % Lymph % (Auto) 7.4 L (10-50) % Potter % (Auto) 5.3 (5-15) % Eos % (Auto) 0.4 (0-8) % Baso % (Auto) 0.14 (0-1) % Immature Gran # (Auto) 0.03 10*3/UL Neut # (Auto) 12.55 10*3/UL Lymph # (Auto) 1.08 10*3/uL Potter # (Auto) 0.77 (0.3-0.8) 10*3/UL Eos # (Auto) 0.06 10*3/UL Baso # (Auto) 0.06 10*3/UL WBC Morphology Comment Normal morphology (NORM) Plt Morphology Comment Normal morphology (NORM) RBC Morph Comment Normal morphology (NORM) PT (9.7-11.4) secs INR (0.00-5.90) N/A Sodium (135-145) meq/L Potassium (3.8-5.2) meq/L Chloride (98-112) meq/L Carbon Dioxide (23-33) meq/L Anion Gap (5-20) BUN (7-22) mg/dL Creatinine (0.70-1.50) mg/dL Estimated GFR (>60 ml/min/1.73m(2)) BUN/Creatinine Ratio (6-20) Glucose (78-110) mg/dL Calculated Osmolality (267-292) mOsm/kg Lactic Acid (0.70-2.10) MMOL/L Calcium (8.7-10.7) mg/dL Magnesium (1.6-2.4) mg/dL Total Bilirubin (0.3-1.2) mg/dL AST (21-57) IU/L ALT (21-72) IU/L Alkaline Phosphatase (38-126) IU/L Total Protein (6.1-8.0) g/dL Albumin (3.5-4.8) g/dL Globulin (2.50-4.10) g/dL Albumin/Globulin Ratio (1.3-2.0) mg/g Amylase 74 (30-110) U/L Lipase (23-300) IU/L Ur Collection Type Voided specimen Urine Color Yellow Urine Clarity Clear (CLEAR) Urine pH 7.5 (5.0-8.5) Ur Specific [place] 1.015 (1.005-1.030) Urine Protein 100 (NEG) mg/dl Urine Glucose (UA) Negative (NEG) mg/dL Urine Ketones 15 (NEG) Urine Occult Blood Trace H (NEG) Urine Nitrate Negative (NEG) Urine Bilirubin Negative (NEG) Urine Urobilinogen 0.2 (0.2) EU/dL Ur Leukocyte Esterase Negative (NEG) Urine RBC 0-5 (NONE) /hpf Urine WBC None (NONE) Ur Squamous Epith Cells None (NONE) Ur Renal Epithelial Cell None (NONE) Urine Crystals None Urine Bacteria None (NONE) Urine Casts None (NONE) Urine Mucus Moderate (NONE) Urine Trichomonas None (NONE) Urine Yeast None (NONE) Ur Culture Indicated? Culture not set 03/02/17 03/03/17 03/03/17 Range/Units 19:30 04:23 04:23 WBC 13.90 H (4.8-10.8) 10^3/uL RBC 4.31 L (4.70-6.10) 10^6/uL Hgb 14.3 (14.0-18.0) g/dL Hct 40.9 L (42.0-52.0) % MCV 94.9 H (80-90) FL MCH 33.2 H (27-31) PG MCHC 35.0 (33-37) g/dL RDW Std Deviation 45.8 (39-50) fL RDW Coeff of Tony 13.7 (11.5-14.5) % Plt Count 246 (140-350) 10*3/uL MPV 10.0 (7.4-12.2) FL Immature Gran % (Auto) 0.3 (0-5) % Neut % (Auto) 80.7 H (50-80) % Lymph % (Auto) 9.9 L (10-50) % Potter % (Auto) 8.6 (5-15) % Eos % (Auto) 0.1 (0-8) % Baso % (Auto) 0.4 (0-1) % Immature Gran # (Auto) 0.04 10*3/UL Neut # (Auto) 11.22 10*3/UL Lymph # (Auto) 1.37 10*3/uL Potter # (Auto) 1.19 H (0.3-0.8) 10*3/UL Eos # (Auto) 0.02 10*3/UL Baso # (Auto) 0.06 10*3/UL WBC Morphology Comment Normal morphology (NORM) Plt Morphology Comment Normal morphology (NORM) RBC Morph Comment Normal morphology (NORM) PT (9.7-11.4) secs INR (0.00-5.90) N/A Sodium 143 142 (135-145) meq/L Potassium 3.9 4.1 (3.8-5.2) meq/L Chloride 103 105 (98-112) meq/L Carbon Dioxide 24 24 (23-33) meq/L Anion Gap 16 13 (5-20) BUN 20 18 (7-22) mg/dL Creatinine 0.7 0.7 (0.70-1.50) mg/dL Estimated GFR > 60 > 60 (>60 ml/min/1.73m(2)) BUN/Creatinine Ratio 28.57 H 25.71 H (6-20) Glucose 131 H 126 H (78-110) mg/dL Calculated Osmolality 300.0 H 297.0 H (267-292) mOsm/kg Lactic Acid 1.6 (0.70-2.10) MMOL/L Calcium 10.5 9.2 (8.7-10.7) mg/dL Magnesium (1.6-2.4) mg/dL Total Bilirubin 1.1 0.9 (0.3-1.2) mg/dL AST 41 30 (21-57) IU/L ALT 70 63 (21-72) IU/L Alkaline Phosphatase 73 57 (38-126) IU/L Total Protein 8.2 H 6.9 (6.1-8.0) g/dL Albumin 4.9 H 4.2 (3.5-4.8) g/dL Globulin 3.3 2.8 (2.50-4.10) g/dL Albumin/Globulin Ratio 1.40 1.50 (1.3-2.0) mg/g Amylase (30-110) U/L Lipase 58 (23-300) IU/L Ur Collection Type Urine Color Urine Clarity (CLEAR) Urine pH (5.0-8.5) Ur Specific [place] (1.005-1.030) Urine Protein (NEG) mg/dl Urine Glucose (UA) (NEG) mg/dL Urine Ketones (NEG) Urine Occult Blood (NEG) Urine Nitrate (NEG) Urine Bilirubin (NEG) Urine Urobilinogen (0.2) EU/dL Ur Leukocyte Esterase (NEG) Urine RBC (NONE) /hpf Urine WBC (NONE) Ur Squamous Epith Cells (NONE) Ur Renal Epithelial Cell (NONE) Urine Crystals Urine Bacteria (NONE) Urine Casts (NONE) Urine Mucus (NONE) Urine Trichomonas (NONE) Urine Yeast (NONE) Ur Culture Indicated? 03/03/17 03/04/17 03/04/17 Range/Units 04:23 04:22 04:22 WBC 8.61 (4.8-10.8) 10^3/uL RBC 3.91 L (4.70-6.10) 10^6/uL Hgb 12.6 L (14.0-18.0) g/dL Hct 37.8 L (42.0-52.0) % MCV 96.7 H (80-90) FL MCH 32.2 H (27-31) PG MCHC 33.3 (33-37) g/dL RDW Std Deviation 46.6 (39-50) fL RDW Coeff of Tony 13.7 (11.5-14.5) % Plt Count 217 (140-350) 10*3/uL MPV 10.1 (7.4-12.2) FL Immature Gran % (Auto) 0.1 (0-5) % Neut % (Auto) 61.5 (50-80) % Lymph % (Auto) 23.9 (10-50) % Potter % (Auto) 11.3 (5-15) % Eos % (Auto) 3.0 (0-8) % Baso % (Auto) 0.2 (0-1) % Immature Gran # (Auto) 0.01 10*3/UL Neut # (Auto) 5.29 10*3/UL Lymph # (Auto) 2.06 10*3/uL Potter # (Auto) 0.97 H (0.3-0.8) 10*3/UL Eos # (Auto) 0.26 10*3/UL Baso # (Auto) 0.02 10*3/UL WBC Morphology Comment Normal morphology (NORM) Plt Morphology Comment Normal morphology (NORM) RBC Morph Comment Normal morphology (NORM) PT 10.7 (9.7-11.4) secs INR 1.01 (0.00-5.90) N/A Sodium 141 (135-145) meq/L Potassium 4.0 (3.8-5.2) meq/L Chloride 107 (98-112) meq/L Carbon Dioxide 25 (23-33) meq/L Anion Gap 9 (5-20) BUN 16 (7-22) mg/dL Creatinine 0.7 (0.70-1.50) mg/dL Estimated GFR > 60 (>60 ml/min/1.73m(2)) BUN/Creatinine Ratio 22.85 H (6-20) Glucose 109 (78-110) mg/dL Calculated Osmolality 293.0 H (267-292) mOsm/kg Lactic Acid 1.5 (0.70-2.10) MMOL/L Calcium 8.7 (8.7-10.7) mg/dL Magnesium (1.6-2.4) mg/dL Total Bilirubin 0.8 (0.3-1.2) mg/dL AST 25 (21-57) IU/L ALT 48 (21-72) IU/L Alkaline Phosphatase 50 (38-126) IU/L Total Protein 6.0 L (6.1-8.0) g/dL Albumin 3.6 (3.5-4.8) g/dL Globulin 2.4 L (2.50-4.10) g/dL Albumin/Globulin Ratio 1.50 (1.3-2.0) mg/g Amylase (30-110) U/L Lipase (23-300) IU/L Ur Collection Type Urine Color Urine Clarity (CLEAR) Urine pH (5.0-8.5) Ur Specific [place] (1.005-1.030) Urine Protein (NEG) mg/dl Urine Glucose (UA) (NEG) mg/dL Urine Ketones (NEG) Urine Occult Blood (NEG) Urine Nitrate (NEG) Urine Bilirubin (NEG) Urine Urobilinogen (0.2) EU/dL Ur Leukocyte Esterase (NEG) Urine RBC (NONE) /hpf Urine WBC (NONE) Ur Squamous Epith Cells (NONE) Ur Renal Epithelial Cell (NONE) Urine Crystals Urine Bacteria (NONE) Urine Casts (NONE) Urine Mucus (NONE) Urine Trichomonas (NONE) Urine Yeast (NONE) Ur Culture Indicated? 03/05/17 03/05/17 03/06/17 Range/Units 05:06 05:19 04:38 WBC 12.15 H 11.11 H (4.8-10.8) 10^3/uL RBC 4.06 L 4.13 L (4.70-6.10) 10^6/uL Hgb 13.2 L 13.5 L (14.0-18.0) g/dL Hct 38.7 L 39.1 L (42.0-52.0) % MCV 95.3 H 94.7 H (80-90) FL MCH 32.5 H 32.7 H (27-31) PG MCHC 34.1 34.5 (33-37) g/dL RDW Std Deviation 45.1 43.8 (39-50) fL RDW Coeff of Tony 13.4 13.2 (11.5-14.5) % Plt Count 224 224 (140-350) 10*3/uL MPV 10.0 10.2 (7.4-12.2) FL Immature Gran % (Auto) 0.3 0.2 (0-5) % Neut % (Auto) 77.5 74.4 (50-80) % Lymph % (Auto) 10.2 11.2 (10-50) % Potter % (Auto) 11.1 11.6 (5-15) % Eos % (Auto) 0.7 2.3 (0-8) % Baso % (Auto) 0.2 0.3 (0-1) % Immature Gran # (Auto) 0.04 0.02 10*3/UL Neut # (Auto) 9.42 8.27 10*3/UL Lymph # (Auto) 1.24 1.24 10*3/uL Potter # (Auto) 1.35 H 1.29 H (0.3-0.8) 10*3/UL Eos # (Auto) 0.08 0.26 10*3/UL Baso # (Auto) 0.02 0.03 10*3/UL WBC Morphology Comment Normal morphology Normal morphology (NORM) Plt Morphology Comment Normal morphology Normal morphology (NORM) RBC Morph Comment Normal morphology Normal morphology (NORM) PT (9.7-11.4) secs INR (0.00-5.90) N/A Sodium 139 (135-145) meq/L Potassium 3.6 L (3.8-5.2) meq/L Chloride 101 (98-112) meq/L Carbon Dioxide 27 (23-33) meq/L Anion Gap 11 (5-20) BUN 27 H (7-22) mg/dL Creatinine 12 H (0.70-1.50) mg/dL Estimated GFR 4 (>60 ml/min/1.73m(2)) BUN/Creatinine Ratio 2.25 L (6-20) Glucose 125 H (78-110) mg/dL Calculated Osmolality 293.0 H (267-292) mOsm/kg Lactic Acid (0.70-2.10) MMOL/L Calcium 8.9 (8.7-10.7) mg/dL Magnesium 1.8 (1.6-2.4) mg/dL Total Bilirubin 1.1 (0.3-1.2) mg/dL AST 33 (21-57) IU/L ALT 62 (21-72) IU/L Alkaline Phosphatase 55 (38-126) IU/L Total Protein 6.2 (6.1-8.0) g/dL Albumin 3.8 (3.5-4.8) g/dL Globulin 2.4 L (2.50-4.10) g/dL Albumin/Globulin Ratio 1.50 (1.3-2.0) mg/g Amylase (30-110) U/L Lipase (23-300) IU/L Ur Collection Type Urine Color Urine Clarity (CLEAR) Urine pH (5.0-8.5) Ur Specific [place] (1.005-1.030) Urine Protein (NEG) mg/dl Urine Glucose (UA) (NEG) mg/dL Urine Ketones (NEG) Urine Occult Blood (NEG) Urine Nitrate (NEG) Urine Bilirubin (NEG) Urine Urobilinogen (0.2) EU/dL Ur Leukocyte Esterase (NEG) Urine RBC (NONE) /hpf Urine WBC (NONE) Ur Squamous Epith Cells (NONE) Ur Renal Epithelial Cell (NONE) Urine Crystals Urine Bacteria (NONE) Urine Casts (NONE) Urine Mucus (NONE) Urine Trichomonas (NONE) Urine Yeast (NONE) Ur Culture Indicated? 03/06/17 03/07/17 03/07/17 Range/Units 04:38 04:35 04:35 WBC 7.93 (4.8-10.8) 10^3/uL RBC 4.07 L (4.70-6.10) 10^6/uL Hgb 13.2 L (14.0-18.0) g/dL Hct 38.4 L (42.0-52.0) % MCV 94.3 H (80-90) FL MCH 32.4 H (27-31) PG MCHC 34.4 (33-37) g/dL RDW Std Deviation 43.8 (39-50) fL RDW Coeff of Tony 13.2 (11.5-14.5) % Plt Count 238 (140-350) 10*3/uL MPV 9.9 (7.4-12.2) FL Immature Gran % (Auto) 0.3 (0-5) % Neut % (Auto) 59.8 (50-80) % Lymph % (Auto) 20.3 (10-50) % Potter % (Auto) 13.4 (5-15) % Eos % (Auto) 4.7 (0-8) % Baso % (Auto) 1.5 H (0-1) % Immature Gran # (Auto) 0.02 10*3/UL Neut # (Auto) 4.75 10*3/UL Lymph # (Auto) 1.61 10*3/uL Potter # (Auto) 1.06 H (0.3-0.8) 10*3/UL Eos # (Auto) 0.37 10*3/UL Baso # (Auto) 0.12 10*3/UL WBC Morphology Comment Normal morphology (NORM) Plt Morphology Comment Normal morphology (NORM) RBC Morph Comment Normal morphology (NORM) PT (9.7-11.4) secs INR (0.00-5.90) N/A Sodium 140 141 (135-145) meq/L Potassium 3.4 L 3.3 L (3.8-5.2) meq/L Chloride 102 107 (98-112) meq/L Carbon Dioxide 27 24 (23-33) meq/L Anion Gap 11 10 (5-20) BUN 10 9 (7-22) mg/dL Creatinine 0.6 L 0.7 (0.70-1.50) mg/dL Estimated GFR > 60 > 60 (>60 ml/min/1.73m(2)) BUN/Creatinine Ratio 16.66 12.85 (6-20) Glucose 134 H 111 H (78-110) mg/dL Calculated Osmolality 290.0 291.0 (267-292) mOsm/kg Lactic Acid (0.70-2.10) MMOL/L Calcium 9.3 9.2 (8.7-10.7) mg/dL Magnesium (1.6-2.4) mg/dL Total Bilirubin (0.3-1.2) mg/dL AST (21-57) IU/L ALT (21-72) IU/L Alkaline Phosphatase (38-126) IU/L Total Protein (6.1-8.0) g/dL Albumin (3.5-4.8) g/dL Globulin (2.50-4.10) g/dL Albumin/Globulin Ratio (1.3-2.0) mg/g Amylase (30-110) U/L Lipase (23-300) IU/L Ur Collection Type Urine Color Urine Clarity (CLEAR) Urine pH (5.0-8.5) Ur Specific [place] (1.005-1.030) Urine Protein (NEG) mg/dl Urine Glucose (UA) (NEG) mg/dL Urine Ketones (NEG) Urine Occult Blood (NEG) Urine Nitrate (NEG) Urine Bilirubin (NEG) Urine Urobilinogen (0.2) EU/dL Ur Leukocyte Esterase (NEG) Urine RBC (NONE) /hpf Urine WBC (NONE) Ur Squamous Epith Cells (NONE) Ur Renal Epithelial Cell (NONE) Urine Crystals Urine Bacteria (NONE) Urine Casts (NONE) Urine Mucus (NONE) Urine Trichomonas (NONE) Urine Yeast (NONE) Ur Culture Indicated? 03/08/17 Range/Units 04:12 WBC (4.8-10.8) 10^3/uL RBC (4.70-6.10) 10^6/uL Hgb (14.0-18.0) g/dL Hct (42.0-52.0) % MCV (80-90) FL MCH (27-31) PG MCHC (33-37) g/dL RDW Std Deviation (39-50) fL RDW Coeff of Tony (11.5-14.5) % Plt Count (140-350) 10*3/uL MPV (7.4-12.2) FL Immature Gran % (Auto) (0-5) % Neut % (Auto) (50-80) % Lymph % (Auto) (10-50) % [place] % (Auto) (5-15) % Eos % (Auto) (0-8) % Baso % (Auto) (0-1) % Immature Gran # (Auto) 10*3/UL Neut # (Auto) 10*3/UL Lymph # (Auto) 10*3/uL [place] # (Auto) (0.3-0.8) 10*3/UL Eos # (Auto) 10*3/UL Baso # (Auto) 10*3/UL WBC Morphology Comment (NORM) Plt Morphology Comment (NORM) RBC Morph Comment (NORM) PT (9.7-11.4) secs INR (0.00-5.90) N/A Sodium 140 (135-145) meq/L Potassium 3.4 L (3.8-5.2) meq/L Chloride 107 (98-112) meq/L Carbon Dioxide 22 L (23-33) meq/L Anion Gap 11 (5-20) BUN 14 (7-22) mg/dL Creatinine 0.7 (0.70-1.50) mg/dL Estimated GFR > 60 (>60 ml/min/1.73m(2)) BUN/Creatinine Ratio 20.00 (6-20) Glucose 94 (78-110) mg/dL Calculated Osmolality 290.0 (267-292) mOsm/kg Lactic Acid (0.70-2.10) MMOL/L Calcium 9.6 (8.7-10.7) mg/dL Magnesium (1.6-2.4) mg/dL Total Bilirubin (0.3-1.2) mg/dL AST (21-57) IU/L ALT (21-72) IU/L Alkaline Phosphatase (38-126) IU/L Total Protein (6.1-8.0) g/dL Albumin (3.5-4.8) g/dL Globulin (2.50-4.10) g/dL Albumin/Globulin Ratio (1.3-2.0) mg/g Amylase (30-110) U/L Lipase (23-300) IU/L Ur Collection Type Urine Color Urine Clarity (CLEAR) Urine pH (5.0-8.5) Ur Specific [place] (1.005-1.030) Urine Protein (NEG) mg/dl Urine Glucose (UA) (NEG) mg/dL Urine Ketones (NEG) Urine Occult Blood (NEG) Urine Nitrate (NEG) Urine Bilirubin (NEG) Urine Urobilinogen (0.2) EU/dL Ur Leukocyte Esterase (NEG) Urine RBC (NONE) /hpf Urine WBC (NONE) Ur Squamous Epith Cells (NONE) Ur Renal Epithelial Cell (NONE) Urine Crystals Urine Bacteria (NONE) Urine Casts (NONE) Urine Mucus (NONE) Urine Trichomonas (NONE) Urine Yeast (NONE) Ur Culture Indicated? Discharge instructions Diet soft diet Activity as tolerated Medications Home Medications Amlodipine Besylate [Norvasc] 1 tab PO DAILY 03/02/17 [History Confirmed ] Atorvastatin Calcium 1 tab PO DAILY 03/02/17 [History Confirmed 03/02/17] Carvedilol 25 mg PO DAILY 03/02/17 [History Confirmed 03/02/17] Cyanocobalamin (Vitamin B-12) [B-12] 1 tab PO DAILY 03/02/17 [History Confirmed 03/02/17] Dutasteride [Avodart] 1 tab PO .QOD 03/02/17 [History Confirmed 03/02/17] Minoa-3/Dha/Epa/Fish Oil [[place]ino[place]-3 Fish Oil 1,200 mg Sfgl] 1 tab-cap PO ONCE [History Confirmed 03/02/17] Valsartan/Hydrochlorothiazide [Diovan Hct 320-25 mg Tablet] 1 tab PO EVERY AM [History Confirmed 03/02/17] Potassium Chloride [Klor-Con] 20 meq PO BID MEALS #12 tab 03/08/17 [Rx] Follow-up with PCP as his back home Exam - Vitals Vital Signs: Vital Signs Temperature 97.2 F Temperature Source Oral Pulse Rate [Pulse Oximeter] 78 Pulse Rate [Apical] 70 Pulse Rate [Pulse Oximeter 70 Bilateral Radial] Pulse Rate 68 Respiratory Rate 20 Blood Pressure [Right Arm] 156/71 Blood Pressure [Left Arm] 155/57 Blood Pressure 168/85 Pulse Ox 94 Oxygen Flow Rate 1 Oxygen Flow Rate 4 Oxygen Delivery Method Room Air Height 5 ft 4 in Weight 223 lb 9.6 oz - General General Appearance: No Acute Distress, Cooperative, Obese - Head Head Exam: Normal Inspection, Atraumatic - Eye Eye Exam: POSITIVE: Normal Appearance - ENT ENT Exam: POSITIVE: Normal Exam - Neck Neck Exam: Normal Inspection - Respiratory Respiratory Exam: POSITIVE: Clear to Auscultation - Bilaterally - Cardiovascular Cardiovascular Exam: POSITIVE: RRR - GI/Abdominal GI/Abdominal Exam: POSITIVE: Non Tender, Non Distended, Soft, No Organomegaly Additional GI/Abdominal Exam Details: Wound looks clear - Rectal Rectal Exam: POSITIVE: Deferred - External Exam: POSITIVE: Deferred - Extremities Extremities Exam: POSITIVE: Normal Inspection - Neurological Neurological Exam: POSITIVE: Alert, Oriented x 3, CN II-XII Intact, Speech Intact / Clear, Moves All Extremities Equally - Psychiatric Psychiatric Exam: POSITIVE: Normal Affect Patient Problems - Patient Problem List (1) Small bowel obstruction Status: Acute Onset Date: 03/02/17 Priority: High Comment: Status post surgery day 3. He is doing well tolerating oral liquid he did have multiple bowel movements. I think will DC his fluids and advance his diet to soft diet. I did speak with Dr. Mckenna he is okay with this plan. Code(s): K56.69 - Other intestinal obstruction Category: Medical (2) Hypertension Status: Acute Comment: Continue Coreg and amlodipine, will restart the Diovan at a lower dosage though. Code(s): I10 - Essential (primary) hypertension Qualifiers: Hypertension type: essential hypertension Qualified Code(s): I10 - Essential (primary) hypertension Category: Medical (3) Coronary artery disease Status: Acute Comment: Continue Coreg and Lipitor. Code(s): I25.10 - Atherosclerotic heart disease of [place] coronary artery without angina pectoris Qualifiers: Coronary Disease-Associated Artery/Lesion type: [place] artery Associated angina: without angina Category: Medical (4) BPH (benign prostatic hyperplasia) Status: Acute Comment: Same med Code(s): N40.0 - Benign prostatic hyperplasia without lower urinary tract symptoms Qualifiers: Lower urinary tract symptom presence: symptoms present Lower urinary tract symptom detail: unspecified Qualified Code(s): N40.1 - Benign prostatic hyperplasia with lower urinary tract symptoms Category: Medical (5) DVT prophylaxis Status: Acute Comment: He is on SCDs. Category: Medical (6) Hypokalemia Status: Acute Comment: Continue replacement Code(s): E87.6 - Hypokalemia Category: Medical
== END 2017-03-08 13:22 | disposition home or self-care (01) | DRG 331 ==
LOC: ER 19:24 → MED/SURG 21:47 → OPS 03-04 14:18 → MED/SURG 03-04 18:55
PROVIDERS: ADMIT Family Medicine; ATTEND Family Medicine